=== PATIENT | female | born 1945 | race African-American/Black ===

== ENCOUNTER → 2016-12-24 | Outpatient (CLI) | payer MEDICARE, MEDICAID ==
[~2016-12-24] MED LIST: ALBUAER3 INH; FLUC150T PO; FLUT1INH3; FURO20TA PO; METO100T PO; POTA10CA PO; SIMV20TA PO
--- NOTE | 2017-01-01 08:53 | RSPPFT ---
DATE OF PROCEDURE: 12/24/16 COMMENTS: Spirometry demonstrates an FEV1 of 1.5 at 78% of predicted, FVC of 1.9 at 71%, FEF 25-75 at 61%. Post-bronchodilator study demonstrated improvements in the FEF 25-75. Lung volumes demonstrated a raised RV/TLC ratio suggesting hyperinflation and air trapping. Diffusion capacity is mildly reduced but normal when corrected for alveolar volume. Flow volume loops are suggestive of an obstructive pattern. IMPRESSION: 1. Mild obstructive disease. 2. Significant response to use of bronchodilator indicating some reversibility. 3. Hyperinflation with air trapping. 4. Mild reduction in diffusion capacity.
== END ==
LOC: HRSP 09:01
DX: J44.9 Chronic obstructive pulmonary disease, unspecified (principal); R06.00 Dyspnea, unspecified; R05 Cough; I10 Essential (primary) hypertension
CPT/HCPCS: 94060; 94726; 94729

== ENCOUNTER 2018-01-24 17:28 | Emergency (ER) | payer MEDICARE, MEDICAID ==
[~2018-01-24] VITALS: Ht 165.1 cm; Wt 50.0 kg
[~2018-01-24 17:28] MED LIST changes: -FLUC150T PO
[2018-01-24 17:39] VITALS: BP 94/59; PULSE 102; RESP 26; TEMP 97.2; O2SAT 97
--- NOTE | 2018-01-24 18:01 | RADRPT ---
EXAM DATE/TIME: 01/24/2018 17:56 [facility] COMPARISON: No previous studies available for comparison. INDICATIONS : Short of breath. MEDICAL HISTORY : Chronic obstructive pulmonary disease. SURGICAL HISTORY : CABG. ENCOUNTER: Initial ACUITY: >1 year PAIN SCORE: 0/10 LOCATION: Bilateral chest FINDINGS: The heart is mildly enlarged. There is no definite focal infiltrate. There is slight blunting of the left costophrenic angle which may reflect minimal effusion. Sternotomy wires and epicardial pacing le ads are present. Inferior vena caval filter is noted. CONCLUSION: Possible small left pleural effusion. Thanh Ventura MD on January 24, 2018 at 17:57 Board Certified Radiologist. This report was verified electronically.
[2018-01-24] MEDS ORDERED: ALBUAER3 INH (20:20)
[2018-01-24] MEDS ORDERED: UMEC1INH INH (20:20)
[2018-01-24 20:27] VITALS: BP 115/70; PULSE 92; RESP 18; O2SAT 98
[2018-01-24 20:56] LABS: AUTOMATED NEUTROPHIL # 3.7 TH/MM3 (1.8-7.7); BASOPHIL # 0.1 TH/MM3 (0-0.2); BASOPHIL % 1.1 % (0.0-2.0); EOSINOPHIL # 0.2 TH/MM3 (0-0.4); EOSINOPHIL % 2.7 % (0.0-4.0); HEMATOCRIT 45.5 % (35.0-46.0); HEMOGLOBIN 15.1 GM/DL (11.6-15.3); LYMPH % 24.6 % (9.0-44.0); LYMPHOCYTE # 1.6 TH/MM3 (1.0-4.8); MEAN CELL VOLUME 92.9 FL (80.0-100.0); MEAN CORPUSCULAR HEMOGLOBIN 30.8 PG (27.0-34.0); MEAN CORPUSCULAR HGB CONC 33.1 % (32.0-36.0); MEAN PLATELET VOLUME 9.2 FL (7.0-11.0); MONO % 15.4 % (0.0-8.0); NEUT % 56.2 % (16.0-70.0); PLATELET COUNT 207 TH/MM3 (150-450); RED BLOOD COUNT 4.89 MIL/MM3 (4.00-5.30); WHITE BLOOD COUNT 6.6 TH/MM3 (4.0-11.0)
--- NOTE | 2018-01-24 20:57 | PD ---
HPI Chief Complaint: Respiratory Symptoms Time Seen by Provider: 19:13 Travel History International Travel<30 days: No Contact w/Intl Traveler<30days: No Traveled to known affect area: No History of Present Illness HPI Patient is 72-year-old female coming in with her main complaint saying " you have to do something about this time I have a tongue" " it swells up and goes down and she has been here multiple times she says for the same. 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 She denies any airway compromise, no shortness of breath, no sensation of throat tightening. She is talking in full sentences no signs of airway compromise. 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 Patient has O2 saturation saturation is normal on the monitor. Blood pressure heart rate normal. She is in no distress whatsoever , she will have repeat CTs to reevaluate the size and progress of the tumors that were seen [address] she denies pain, she just says "she feels her tongue is very large" and it is driving her crazy it is difficult to eat. Patient is a history of hypertension and COPD she is on inhalers HFA's and she is on metoprolol for her high blood pressure and simvastatin for her cholesterol. No signs of resp distress on initial eval. 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) Hepatitis: No Hiatal Hernia: No Hypertension: Yes Immune Disorder: No Kidney Stones: No Medical other: Yes (HYPERCHOLESTEROL) Musculoskeletal: Yes (FIBROMYALGIA) Neurologic: No Psychiatric: No Reproductive: No Respiratory: Yes Immunizations Current: Yes Myocardial Infarction: No Seizures: No Sickle Cell Disease: No Sleep Apnea: No Thyroid Disease: Yes (DX HYPERTHYROIDISM) PNEUMOCCOCAL Vaccine (Year): 1 Menopausal: Yes Past Surgical History Abdominal Surgery: No AICD: No Appendectomy: No Arteriovenous Shunt: No Body Medical Devices: AVR Cardiac Surgery: Yes (AORTIC VALVE [id number] & 2008) Cholecystectomy: No Ear Surgery: No Endocrine Surgery: No Eye Surgery: No Genitourinary Surgery: No Gynecologic Surgery: No Joint Replacement: No Oral Surgery: No Pacemaker: No Thoracic Surgery: No Valve Replacement: Yes (aortic valve x 2) Other Surgery: Yes (AVR, SALINAS CYST) Social History Alcohol Use: Yes (occ wine) Tobacco Use: No Substance Use: No Allergies-Medications (Allergen,Severity, Reaction): Coded Allergies: nitroglycerin (Verified Allergy, Severe, PT DOESNT REMEMBER, 01/24/18) Uncoded Allergies: FRESH FROZEN PLASMA (Allergy, Severe, SWELLING,ITCHING, 10/31/15) Reported Meds & Prescriptions Reported Meds & Active Scripts Active Magic Mouthwash Adult Liq (Multi-Ingredient Mouthwash/Gargle) 120 Ml Susp 5 Ml SWISH-SWAL ACHS Each 5mL contains: Nystatin 200,000units, Diphenhydramine 4.25mg, Viscous Lidocaine 10mg, Lomeli syrup 0.8 mL Metoprolol Tartrate 100 Mg Tab 100 Mg PO BID Furosemide 20 Mg Tab 20 Mg PO DAILY Reported Incruse Ellipta Inh (Umeclidinium Flora Inh) 0.0625 Mg/Act Inh 62.5 Mcg INH DAILY Proair Hfa 8.5 GM Inh (Albuterol Sulfate) 90 Mcg/Act Aer 2 Puff INH Q6H PRN 108 mcg/actuation Arnuity Ellipta (Fluticasone Furoate (Inhalatio) 100 Mcg/Act Inh Simvastatin 20 Mg Tab 20 Mg PO HS Potassium Chloride ER (Potassium Chloride) 10 Meq Cap 10 Meq PO DAILY Review of Systems Except as stated in HPI: all other systems reviewed are Neg HENT: Positive: Other (Tongue swelling) Physical Exam Narrative GENERAL: No signs of respiratory distress SKIN: Warm and dry. HEAD: Atraumatic. Normocephalic. EYES: Pupils equal and round. No scleral icterus. No injection or drainage. ENT: No nasal bleeding or discharge. Mucous membranes pink and moist. Tongue is mildly large with dark patterns linear through out surface ... however lips and posterior pharynx and uvula are all within normal limits NECK: Trachea midline. No JVD. CARDIOVASCULAR: Regular rate and rhythm. RESPIRATORY: No accessory muscle use. Clear to auscultation. Breath sounds equal bilaterally. No RALES , no coarse BS GASTROINTESTINAL: Abdomen soft, non-tender, nondistended. Hepatic and splenic margins not palpable. MUSCULOSKELETAL: Extremities without clubbing, cyanosis, or edema. No obvious deformities. NEUROLOGICAL: Awake and alert. No obvious cranial nerve deficits. Motor grossly within normal limits. Five out of 5 muscle strength in the arms and legs. Normal speech. PSYCHIATRIC: Appropriate mood and affect; insight and judgment normal. Data Data Last Documented VS Vital Signs Date Time Temp Pulse Resp B/P (MAP) Pulse Ox O2 Delivery O2 Flow Rate FiO2 01/25/18 01:07 01/24/18 20:27 92 18 98 Room Air 01/24/18 17:39 97.2 Orders Orders Chest, Pa & Lat (01/24/18 ) Complete Blood Count With Diff (01/24/18 20:08) Westergren Sedimentation Rate (01/24/18 20:08) Comprehensive Metabolic Panel (01/24/18 20:08) Ct Soft Tiss Neck W Iv Cont (01/24/18 ) Iohexol 350 Inj (Omnipaque 350 Inj) (01/24/18 22:10) Diphenhydramine Liq (Benadryl Liq) (01/24/18 23:45) Lidocaine 2% Viscous (Xylocaine 2% Visco (01/24/18 23:45) Sucralfate Liq (Carafate Liq) (01/24/18 23:45) Nystatin Liq (Mycostatin Liq) (01/24/18 23:45) Ed Discharge Order (01/25/18 01:02) Labs Laboratory Tests Test 01/24/18 20:33 01/24/18 20:47 White Blood Count 6.6 TH/MM3 Red Blood Count 4.89 MIL/MM3 Hemoglobin 15.1 GM/DL Hematocrit 45.5 % Mean Corpuscular Volume 92.9 FL Mean Corpuscular Hemoglobin 30.8 PG Mean Corpuscular Hemoglobin Concent 33.1 % Red Cell Distribution Width 16.0 % Platelet Count 207 TH/MM3 Mean Platelet Volume 9.2 FL Neutrophils (%) (Auto) 56.2 % Lymphocytes (%) (Auto) 24.6 % Monocytes (%) (Auto) 15.4 % Eosinophils (%) (Auto) 2.7 % Basophils (%) (Auto) 1.1 % Neutrophils # (Auto) 3.7 TH/MM3 Lymphocytes # (Auto) 1.6 TH/MM3 Monocytes # (Auto) 1.0 TH/MM3 Eosinophils # (Auto) 0.2 TH/MM3 Basophils # (Auto) 0.1 TH/MM3 CBC Comment DIFF FINAL Differential Comment Blood Urea Nitrogen 19 MG/DL Creatinine 1.42 MG/DL Random Glucose 101 MG/DL Total Protein 7.3 GM/DL Albumin 3.4 GM/DL Calcium Level 9.6 MG/DL Alkaline Phosphatase 114 U/L Aspartate Amino Transf (AST/SGOT) 52 U/L Alanine Aminotransferase (ALT/SGPT) 94 U/L Total Bilirubin 1.3 MG/DL Sodium Level 138 MEQ/L Potassium Level 4.7 MEQ/L Chloride Level 106 MEQ/L Carbon Dioxide Level 23.0 MEQ/L Anion Gap 9 MEQ/L Estimat Glomerular Filtration Rate 44 ML/MIN Erythrocyte Sedimentation Rate 3 mm/hr [facility] Medical Decision Making Medical Screen Exam Complete: Yes Emergency Medical Condition: Yes Differential Diagnosis tongue swelling allergic vs chronic vs geographic tongue vs trnach mouth other Ludwigs angina Narrative Course CT read as negative for ear nor parotid gland mass pt given PO GI cocktail with benadryl and sulcrafate added to alleviate Sx and Rx for the same safe for discharge home Diagnosis Primary Impression: Geographic tongue Patient Instructions: General Instructions Departure Forms: Tests/Procedures Scripts Kbtuogrq-Pdfomlgmebxtoxl-Mnebyadfr Liq (Magic Mouthwash Adult Liq) 120 Ml Susp 5 ML SWISH-SWAL ACHS for Mouth sores, #120 ML 0 Refills Each 5mL contains: Nystatin 200,000units, Diphenhydramine 4.25mg, Viscous Lidocaine 10mg, Lomeli syrup 0.8 mL Prov: Jamel Padilla MD 01/25/18 Jamel Padilla MD Jan 24, 2018 20:57
[2018-01-24 21:16] LABS: ALT (GPT) 94 U/L (10-53)
[2018-01-24 21:19] LABS: ALKALINE PHOSPHATASE 114 U/L (45-117); TOTAL BILIRUBIN ADULT 1.3 MG/DL (0.2-1.0); TOTAL PROTEIN 7.3 GM/DL (6.4-8.2)
[2018-01-24 21:38] LABS: ALBUMIN 3.4 GM/DL (3.4-5.0); AST (GOT) 52 U/L (15-37); BLOOD UREA NITROGEN 19 MG/DL (7-18); CALCIUM 9.6 MG/DL (8.5-10.1); CHLORIDE 106 MEQ/L (98-107); CREATININE 1.42 MG/DL (0.50-1.00); GLOMERULAR FILTRATION RATE 44 ML/MIN (>89); GLUCOSE,RANDOM 101 MG/DL (74-106); SODIUM (NA) 138 MEQ/L (136-145)
[2018-01-24] MEDS ORDERED: IOHEXOL 350 MG/ML 10 ML VIAL (for RAD DIAG) IVCONTRAST ONE (22:10)
--- NOTE | 2018-01-24 23:12 | RADRPT ---
EXAM DATE/TIME: 01/24/2018 22:07 [facility] COMPARISON: No previous studies available for comparison. INDICATIONS : Tongue swelling and pain; patient has history of parotid mass. IV CONTRAST: 65 cc Omnipaque 350 (iohexol) IV RADIATION DOSE: 18.01 CTDIvol (mGy) MEDICAL HISTORY : Cardiovascular disease. Congestive heart failure. Gastroesophageal reflux disease.Hypertension SURGICAL HISTORY : Aortic valve replaced ENCOUNTER: Initial ACUITY: 1 day PAIN SCALE: 6/10 LOCATION: neck TECHNIQUE: Volumetric scanning of the neck was performed. Using automated exposure control and adjustment of th e mA and/or kV according to patient size, radiation dose was kept as low as reasonably achievable to obtain optimal diagnostic quality images. DICOM format image data is available electronically for r eview and comparison. FINDINGS: NASOPHARYNX: The nasopharyngeal airway has a normal configuration. No mucosal thickening or mass is seen. OROPHARYNX: The intrinsic muscles of the tongue are symmetric. The tonsillar pillars are intact. The prevertebr al soft tissues are not thickened. LARYNX: The supraglottic, glottic, and infraglottic structures are intact. PARAPHARYNGEAL: The parapharyngeal space is intact. SALIVARY GLANDS: The parotid and submandibular glands are intact. LYMPH NODES: No enlarged or necrotic-appearing nodes. THYROID: Homogeneous enhancement without evidence of nodule. BONES: Unremarkable. Scattered calcified plaque throughout the carotid arteries bilaterally. The right extracranial ICA is tortuous. CONCLUSION: 1. No acute abnormality. Uriah Landaverde Jr., MD on January 24, 2018 at 23:06 Board Certified Radiologist. This report was verified electronically.
[2018-01-24] MEDS ORDERED: NYSTATIN SUSP 500,000 U/5 ML CUP SWISH-SWAL ONE (23:45)
[2018-01-24] MEDS ORDERED: diphenhydrAMINE HCL ELIXIR 12.5 MG/5 ML CUP PO ONE (23:45)
[2018-01-24] MEDS ORDERED: LIDOCAINE VISCOUS 2% SOLN 15 ML UDC SWISH-SWAL ONE (23:45)
[2018-01-24] MEDS ORDERED: SUCRALFATE 1 GM/10 ML CUP PO ONE (23:45)
[2018-01-25] MEDS ORDERED: MAGICADU2 SWISH-SWAL (01:01)
== END 2018-01-25 01:53 | disposition home or self-care (01) ==
LOC: NEPE 17:28
DX: K14.1 Geographic tongue (principal); I11.0 Hypertensive heart disease with heart failure; I50.9 Heart failure, unspecified; E78.00 Pure hypercholesterolemia, unspecified; J44.9 Chronic obstructive pulmonary disease, unspecified
CPT/HCPCS: 70491; 71046; 80053; 85025; 85652; 99285; Q9967

== ENCOUNTER 2018-03-06 09:21 | Inpatient (IN) | payer MEDICARE, MEDICAID ==
[~2018-03-06] VITALS: Ht 167.6 cm; Wt 67.1 kg
[2018-03-06] VITALS (11 sets, daily range): BP systolic 98–128; BP diastolic 60–81; PULSE 63–112; RESP 15–20; TEMP 97.2–98.6; O2SAT 95–100
[~2018-03-06 09:21] MED LIST changes: +MAGICADU2 SWISH-SWAL; +UMEC1INH INH
[2018-03-06 10:23] LABS: AUTOMATED NEUTROPHIL # 1.8 TH/MM3 (1.8-7.7); EOSINOPHIL # 0.2 TH/MM3 (0-0.4); EOSINOPHIL % 4.5 % (0.0-4.0); HEMATOCRIT 46.4 % (35.0-46.0); HEMOGLOBIN 15.3 GM/DL (11.6-15.3); LYMPH % 40.2 % (9.0-44.0); LYMPHOCYTE # 1.8 TH/MM3 (1.0-4.8); MEAN CELL VOLUME 91.3 FL (80.0-100.0); MEAN CORPUSCULAR HEMOGLOBIN 30.1 PG (27.0-34.0); MEAN PLATELET VOLUME 9.7 FL (7.0-11.0); MONO % 13.1 % (0.0-8.0); MONOCYTE # 0.6 TH/MM3 (0-0.9); NEUT % 41.2 % (16.0-70.0); PLATELET COUNT 186 TH/MM3 (150-450); RED BLOOD COUNT 5.08 MIL/MM3 (4.00-5.30); RED CELL DISTRIBUTION WIDTH 15.5 % (11.6-17.2); WHITE BLOOD COUNT 4.4 TH/MM3 (4.0-11.0)
--- NOTE | 2018-03-06 10:24 | RADRPT ---
EXAM DATE: 03/06/2018 10:04 AM EDT AGE/SEX: 72 years / Female INDICATIONS: Chest pain. CLINICAL DATA: This is the patient's initial encounter. Patient reports that signs and symptoms have been present for 1 day and indicates a pain score of 1/10. MEDICAL/SURGICAL HISTORY: . COPD. Thyroid. . 2 valve replacements. Open heart surgery. [place] [facility] [place]. . FINDINGS: The heart is enlarged. The patient is post median sternotomy. The mediastinal contours are within nor mal limits. There are chronic interstitial changes throughout the pulmonary parenchyma. CONCLUSION: Cardiomegaly and postsurgical changes. The lungs are clear. Electronically signed by: Sudheer Cross MD 03/06/2018 10:22 AM EDT
[2018-03-06 10:31] LABS: INTERNATIONAL NORMALIZED RATIO 1.2 RATIO; PROTHROMBIN TIME - PATIENT 12.2 SEC (9.8-11.6)
[2018-03-06 10:39] LABS: BICARBONATE 24.6 MEQ/L (21.0-32.0); BLOOD UREA NITROGEN 18 MG/DL (7-18); CALCIUM 10.1 MG/DL (8.5-10.1); CHLORIDE 104 MEQ/L (98-107); GLOMERULAR FILTRATION RATE 54 ML/MIN (>89); GLUCOSE,RANDOM 107 MG/DL (74-106); SODIUM (NA) 142 MEQ/L (136-145)
[2018-03-06 10:43] LABS: TROPONIN I LESS THAN 0.02 NG/ML (0.02-0.05)
[2018-03-06] MEDS ORDERED: SODIUM CHLOR 0.9% 1000 ML INJ 1,000 ML IV SCH (10:45)
[2018-03-06] MEDS ORDERED: ASPIRIN 325 MG TAB PO ONE (11:30)
--- NOTE | 2018-03-06 11:33 | PD ---
HPI Chief Complaint: Chest Pain Time Seen by Provider: 11:11 Travel History International Travel<30 days: No Contact w/Intl Traveler<30days: No Traveled to known affect area: No History of Present Illness HPI This is a 72-year-old female with history of coronary artery disease, retention , fibromyalgia, who presents today with complaints of near syncopal episode today. Patient states that she was at home doing her laundry. She reports that she went to sit down and read the paper and when she went to stand up, she became severely dizzy. She reports that she nearly passed out. She reports that this persisted for several minutes. She reports that at that point, she called 911. She denies any chest pain. She does report that she has left shoulder and arm pain. She reports she gets this pain occasionally and states that she feels it is secondary to her fibromyalgia. She does report that she still feeling slightly "off". She has had no previous near syncopal episodes. 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 Patient also has recently diagnosed hypothyroidism. There is no reported diarrhea. Patient reports that she does urinate quite frequently but reports taking diuretics. 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) Hepatitis: No Hiatal Hernia: No Hypertension: Yes Immune Disorder: No Kidney Stones: No Musculoskeletal: Yes (FIBROMYALGIA) Neurologic: No Psychiatric: No Reproductive: No Respiratory: Yes Immunizations Current: Yes Myocardial Infarction: No Seizures: No Sickle Cell Disease: No Sleep Apnea: No Thyroid Disease: Yes (DX HYPERTHYROIDISM) Tetanus Vaccination: Never Vaccinated Influenza Vaccination: Yes PNEUMOCCOCAL Vaccine (Year): 1 ?: Unknown Menopausal: Yes Past Surgical History Abdominal Surgery: No AICD: No Appendectomy: No Arteriovenous Shunt: No Body Medical Devices: AVR Cardiac Surgery: Yes (AORTIC VALVE [id number] & 2008) Cholecystectomy: No Ear Surgery: No Endocrine Surgery: No Eye Surgery: No Genitourinary Surgery: No Gynecologic Surgery: No Joint Replacement: No Oral Surgery: No Pacemaker: No Thoracic Surgery: No Valve Replacement: Yes (aortic valve x 2) Other Surgery: Yes (AVR, SALINAS CYST) Social History Alcohol Use: Yes (occ wine) Tobacco Use: No Substance Use: No Allergies-Medications (Allergen,Severity, Reaction): Coded Allergies: nitroglycerin (Verified Allergy, Severe, PT DOESNT REMEMBER, 03/06/18) Uncoded Allergies: FRESH FROZEN PLASMA (Allergy, Severe, SWELLING,ITCHING, 10/31/15) Reported Meds & Prescriptions Reported Meds & Active Scripts Active Magic Mouthwash Adult Liq (Multi-Ingredient Mouthwash/Gargle) 120 Ml Susp 5 Ml SWISH-SWAL ACHS Each 5mL contains: Nystatin 200,000units, Diphenhydramine 4.25mg, Viscous Lidocaine 10mg, Lomeli syrup 0.8 mL Metoprolol Tartrate 100 Mg Tab 100 Mg PO BID Furosemide 20 Mg Tab 20 Mg PO DAILY Reported Incruse Ellipta Inh (Umeclidinium Oto Inh) 0.0625 Mg/Act Inh 62.5 Mcg INH DAILY Proair Hfa 8.5 GM Inh (Albuterol Sulfate) 90 Mcg/Act Aer 2 Puff INH Q6H PRN 108 mcg/actuation Arnuity Ellipta (Fluticasone Furoate (Inhalatio) 100 Mcg/Act Inh Simvastatin 20 Mg Tab 20 Mg PO HS Potassium Chloride ER (Potassium Chloride) 10 Meq Cap 10 Meq PO DAILY Review of Systems Except as stated in HPI: all other systems reviewed are Neg General / Constitutional: No: Fever, Chills HENT: Positive: Lightheadedness, No: Headaches, Vertigo, Neck Pain Cardiovascular: Positive: Palpitations, No: Chest Pain or Discomfort, Irregular Rhythm Respiratory: No: Cough, Wheezing Gastrointestinal: No: Nausea, Vomiting, Abdominal Pain Genitourinary: No: Dysuria, Incontinence Musculoskeletal: No: Weakness, Pain Neurologic: Positive: Syncope (Near syncope), No: Weakness, Dizziness, Headache Physical Exam Narrative GENERAL: Well-developed well well-nourished female in no acute respiratory distress. SKIN: Focused skin assessment warm/dry. HEAD: Atraumatic. Normocephalic. EYES: No injection or drainage. ENT: No nasal bleeding or discharge. Mucous membranes pink and moist. NECK: Trachea midline. No JVD. CARDIOVASCULAR: Irregular beat with a rate in the 70s. RESPIRATORY: No accessory muscle use. Clear to auscultation. Breath sounds equal bilaterally. GASTROINTESTINAL: Abdomen soft, non-tender, nondistended. Hepatic and splenic margins not palpable. MUSCULOSKELETAL: No obvious deformities. No clubbing. No cyanosis. No edema. NEUROLOGICAL: Awake and alert. No obvious cranial nerve deficits. Motor grossly within normal limits. Normal speech. PSYCHIATRIC: Appropriate mood and affect; insight and judgment normal. Data Data Last Documented VS Vital Signs Date Time Temp Pulse Resp B/P (MAP) Pulse Ox O2 Delivery O2 Flow Rate FiO2 03/06/18 10:14 79 15 96 Room Air 03/06/18 10:14 98.1 122/81 (95) Orders Orders Electrocardiogram (03/06/18 ) Electrocardiogram (03/06/18 09:44) Complete Blood Count With Diff (03/06/18 09:44) Basic Metabolic Panel (Bmp) (03/06/18 09:44) Ckmb (Isoenzyme) Profile (03/06/18 09:44) Troponin I (03/06/18 09:44) Chest, Single Ap (03/06/18 09:44) Iv Access Insert/Monitor (03/06/18 09:44) Ecg Monitoring (03/06/18 09:44) Oxygen Administration (03/06/18 09:44) Oximetry (03/06/18 09:44) Prothrombin Time / Inr (Pt) (03/06/18 09:44) Sodium Chlor 0.9% 1000 Ml Inj (Ns 1000 M (03/06/18 10:45) Aspirin (Aspirin) (03/06/18 11:30) Albuterol Hfa Inh (Proair Hfa Inh) (03/06/18 12:15) Metoprolol Tartrate (Lopressor) (03/06/18 21:00) Usaw-Wqyi-Nupo Liq (Magic Mouthwash Adul (03/06/18 17:00) Pravastatin (Pravachol) (03/06/18 21:00) Patient Own Medication (03/07/18 09:00) Thyroid Stimulating Hormone (03/06/18 12:09) B-Type Natriuretic Peptide (03/06/18 12:09) Labs Laboratory Tests Test 03/06/18 09:45 White Blood Count 4.4 TH/MM3 Red Blood Count 5.08 MIL/MM3 Hemoglobin 15.3 GM/DL Hematocrit 46.4 % Mean Corpuscular Volume 91.3 FL Mean Corpuscular Hemoglobin 30.1 PG Mean Corpuscular Hemoglobin Concent 33.0 % Red Cell Distribution Width 15.5 % Platelet Count 186 TH/MM3 Mean Platelet Volume 9.7 FL Neutrophils (%) (Auto) 41.2 % Lymphocytes (%) (Auto) 40.2 % Monocytes (%) (Auto) 13.1 % Eosinophils (%) (Auto) 4.5 % Basophils (%) (Auto) 1.0 % Neutrophils # (Auto) 1.8 TH/MM3 Lymphocytes # (Auto) 1.8 TH/MM3 Monocytes # (Auto) 0.6 TH/MM3 Eosinophils # (Auto) 0.2 TH/MM3 Basophils # (Auto) 0.0 TH/MM3 CBC Comment DIFF FINAL Differential Comment Prothrombin Time 12.2 SEC Prothromb Time International Ratio 1.2 RATIO Blood Urea Nitrogen 18 MG/DL Creatinine 1.20 MG/DL Random Glucose 107 MG/DL Calcium Level 10.1 MG/DL Sodium Level 142 MEQ/L Potassium Level 4.1 MEQ/L Chloride Level 104 MEQ/L Carbon Dioxide Level 24.6 MEQ/L Anion Gap 13 MEQ/L Estimat Glomerular Filtration Rate 54 ML/MIN Total Creatine Kinase 32 U/L Troponin I LESS THAN 0.02 NG/ML MDM Medical Decision Making Medical Screen Exam Complete: Yes Emergency Medical Condition: Yes Medical Record Reviewed: Yes Differential Diagnosis ACS versus musculoskeletal pain versus metabolic derangement versus TIA versus cardiac syncope Narrative Course 72-year-old female with history of coronary artery disease, presents here after having a near syncopal episode while at home. Patient also complained of left arm pain. Patient's EKG shows sinus arrhythmia with occasional PVC. First set of cardiac enzymes are within normal limits. Given the patient's presentation I am recommending we admit her for observation. She will need to be on telemetry floor. Case was discussed with senior resident, Dr. walters, who is in agreement. She will likely need a syncope workup including telemetry. Diagnosis Primary Impression: Near syncope Additional Impressions: History of aortic valve replacement Sinus arrhythmia with occasional PVCs HTN (hypertension) CKD (chronic kidney disease), stage III Admitting Information Admitting Physician Requests: Observation Bright Ruth MD March 06, 2018 11:33
--- NOTE | 2018-03-06 12:02 | HHI.HP ---
[facility] Service Family Medicine Primary Care Physician Unknown Admission Diagnosis Diagnoses: International Travel<30 Days: No Contact w/Intl Traveler<30days: No Known Affected Area: No History of Present Illness Patient is a 72-year-old AA female with a past medical history of coronary artery disease and fibromyalgia that presents to the [facility] with a chief complaint of syncope. Patient states that early this morning around 730 to 8 AM she was sitting in a chair watching TV. When she tried to get up, she felt dizzy so she sat back down and did not try to get up anymore because she knew that she will fall if she did. She states that the room did not spin all go dark but she felt lightheaded. She denies any seizure-like activity. The episode lasted for 3 minutes, and she had a bad feeling about it so she called 911. She denies having any syncopal episodes in the past. Patient does states that she has been having issues with her tongue such that anytime she eats food, she feels the food swells in her mouth and she develops a bad taste, forcing her to spit the food out. She states that she has no pain with swallowing. She has been drinking water normally. She has only been able to eat ensure and pudding since December. She has lost at least 12 pounds since December. Patient states that her PCP started her on levothyroxine within the last 30 days because of the issues that she is having with her tongue. She is also being treated with Magic mouthwash swish and swallow. Patient denies fever, chills, abdominal pain, nausea, vomiting, diarrhea, shortness of breath, or chest pain. She endorses constipation. Last time she had a bowel movement was 2 days ago and it was very hard such that she had to reach in and get it out. PCP is Dr. Rochelle Meadows. Political Advisor is Dr. Turner (Aster Coyne MD R2) History of Present Illness 72-year-old -[place] female presenting to the emergency department with a near syncopal episode. She states that early this morning at approximately 8 AM she was watching TV while sitting in a chair and when she went to get up she felt dizzy and had to sit back down because she felt that she was going to pass out. She states that she felt significantly lightheaded, however did not note spinning or vertigo type symptoms. The episode lasted for approximately 5 minutes and she has never had an episode like this before so she called for EVAC. She denies full loss of consciousness, she denies falling, she denies chest pain or palpitations, she denies fevers or chills, she denies recent illness. She does endorse a recent 20 pound weight loss because she has difficulty with eating. 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 It is particularly bad with solid foods such as breads and pastas, and she states that the only thing she has been able to eat for the last 3 months has been puddings, Jell-O, and protein supplementation like Ensure. She denies diarrhea, she denies abdominal pain, she denies throat pain, she denies dysuria, she denies early satiety. She does endorse constipation associated with this. (Jp Mayberry MD) Review of Systems Constitutional: COMPLAINS OF: Weight loss, Dizziness, DENIES: Fever, Chills Eyes: DENIES: Blurred vision, Eye pain, Vision loss Ears, nose, mouth, throat: COMPLAINS OF: Nasal discharge, Running Nose (for 3 weeks ) Respiratory: COMPLAINS OF: Shortness of breath (chronic copd), DENIES: Cough Cardiovascular: DENIES: Chest pain, Syncope, Lower Extremity Edema Gastrointestinal: COMPLAINS OF: Constipation, DENIES: Abdominal pain, Diarrhea (last BM was 2 days ago), Nausea, Vomiting Genitourinary: DENIES: Urinary frequency, Dysuria, Nocturia Musculoskeletal: COMPLAINS OF: Muscle aches (chronic fibromyalgia) Integumentary: DENIES: Pruritus, Rash Neurologic: DENIES: Headache, Paresthesias Psychiatric: COMPLAINS OF: Depression (since December, from not eating ), DENIES: Confusion, Suicidal Ideation, Homicidal Ideation (Aster Coyne MD R2) Past Family Social History Past Medical History Some of the patient's past medical and surgical history is mostly obtained from chart review. Patient states that she does not remember having a PE, IVC filter placement, or back surgery. Hx of GI bleed Hx of right leg hematoma Hx of PE Fibromyalgia Hypertension Hyperlipidemia Past Surgical History Aortic valve replacement in 1996, 2008- bioprosthetic IVC filter by chart review Kidney embolization in S/p laminectomy and diskectomy Breast biopsy Reported Medications Reported Meds & Active Scripts Active Magic Mouthwash Adult Liq (Multi-Ingredient Mouthwash/Gargle) 120 Ml Susp 5 Ml SWISH-SWAL ACHS Each 5mL contains: Nystatin 200,000units, Diphenhydramine 4.25mg, Viscous Lidocaine 10mg, Lomeli syrup 0.8 mL Metoprolol Tartrate 100 Mg Tab 100 Mg PO BID Furosemide 20 Mg Tab 20 Mg PO DAILY Reported Incruse Ellipta Inh (Umeclidinium [place] Inh) 0.0625 Mg/Act Inh 62.5 Mcg INH DAILY Proair Hfa 8.5 GM Inh (Albuterol Sulfate) 90 Mcg/Act Aer 2 Puff INH Q6H PRN 108 mcg/actuation Arnuity Ellipta (Fluticasone Furoate (Inhalatio) 100 Mcg/Act Inh Simvastatin 20 Mg Tab 20 Mg PO HS Potassium Chloride ER (Potassium Chloride) 10 Meq Cap 10 Meq PO DAILY (Aster Coyne MD R2) Allergies: Coded Allergies: nitroglycerin (Verified Allergy, Severe, PT DOESNT REMEMBER, 03/06/18) Uncoded Allergies: FRESH FROZEN PLASMA (Allergy, Severe, SWELLING,ITCHING, 10/31/15) Family History Mom - breast cancer Social History Smoking: quit smoking in 2009, smoked occasionally, socially Alcohol: wine, half a bottle each weekend day Drugs: denies (Aster Coyne MD R2) Physical Exam Vital Signs Vital Signs Date Time Temp Pulse Resp B/P (MAP) Pulse Ox O2 Delivery O2 Flow Rate FiO2 03/06/18 10:14 79 15 96 Room Air 03/06/18 10:14 98.1 89 15 122/81 (95) 96 Room Air 03/06/18 09:25 98.4 112 20 98/60 (73) 99 Physical Exam GENERAL: This is a slim, well-developed patient, pleasant and talkative SKIN: No rashes, ecchymoses or lesions. Cool and dry. HEAD: Atraumatic. Normocephalic. No temporal or scalp tenderness. EYES: Pupils equal round and reactive. Extraocular motions intact. No scleral icterus. No injection or drainage. ENT: Nose without bleeding, purulent drainage or septal hematoma. Geographic tongue, normal size. No signs of thrush. Throat without erythema, tonsillar hypertrophy or exudate. Uvula midline. Airway patent. NECK: Trachea midline. No JVD or lymphadenopathy. Supple, nontender, no meningeal signs. CARDIOVASCULAR: Regular rate and irregular rhythm without murmurs, gallops, or rubs. RESPIRATORY: Clear to auscultation. Breath sounds equal bilaterally. No wheezes , rales, or rhonchi. GASTROINTESTINAL: Abdomen soft, non-tender, nondistended. No hepato-splenomegaly , or palpable masses. No guarding. MUSCULOSKELETAL: Extremities without clubbing, cyanosis, or edema. No joint tenderness, effusion, or edema noted. No calf tenderness. NEUROLOGICAL: Awake and alert. Cranial nerves II through XII intact. Normal finger to nose test. Motor and sensory grossly within normal limits. Five out of 5 muscle strength in all muscle groups. Normal speech. Laboratory Laboratory Tests Test 03/06/18 09:45 White Blood Count 4.4 Red Blood Count 5.08 Hemoglobin 15.3 Hematocrit 46.4 Mean Corpuscular Volume 91.3 Mean Corpuscular Hemoglobin 30.1 Mean Corpuscular Hemoglobin Concent 33.0 Red Cell Distribution Width 15.5 Platelet Count 186 Mean Platelet Volume 9.7 Neutrophils (%) (Auto) 41.2 Lymphocytes (%) (Auto) 40.2 Monocytes (%) (Auto) 13.1 Eosinophils (%) (Auto) 4.5 Basophils (%) (Auto) 1.0 Neutrophils # (Auto) 1.8 Lymphocytes # (Auto) 1.8 Monocytes # (Auto) 0.6 Eosinophils # (Auto) 0.2 Basophils # (Auto) 0.0 CBC Comment DIFF FINAL Differential Comment Prothrombin Time 12.2 Prothromb Time International Ratio 1.2 Blood Urea Nitrogen 18 Creatinine 1.20 Random Glucose 107 Calcium Level 10.1 Sodium Level 142 Potassium Level 4.1 Chloride Level 104 Carbon Dioxide Level 24.6 Anion Gap 13 Estimat Glomerular Filtration Rate 54 Total Creatine Kinase 32 Troponin I LESS THAN 0.02 (Eko,Aster TAVERAS R2) Physical Exam General: -Beninese female appears elderly, lying in bed in no obvious distress Skin: No rashes or obvious lesions HEENT: Atraumatic, normocephalic, PERRLA, tongue is beefy red with weight, plaque type lesions that cannot be removed. No obvious signs of thrush. Throat without erythema, hypertrophy of the tonsils, or exudates. CV: Regular rate and rhythm with occasional PVCs, no murmurs or gallops. Respiratory: Clear to auscultation bilaterally. GI: Soft, nontender, nondistended without hepatosplenomegaly (Jp Mayberry MD) Result Diagram: 03/06/18 0945 03/06/18 0945 Imaging Last Impressions Chest X-Ray 03/06/18 0944 Signed Impressions: CONCLUSION: Cardiomegaly and postsurgical changes. The lungs are clear. Carotid Artery Ultrasound 03/06/18 0000 Signed Impressions: CONCLUSION: There are 50-69% stenoses of both internal carotid arteries. Course In the ED, patient was found to be tachycardic on admission. EKG was performed which showed sinus arrhythmia with frequent PVCs. Troponin 1 was less than 0.02. Decision was made to admit her for syncope workup including telemetry. (Aster Coyne MD R2) Caprini VTE Risk Assessment Caprini VTE Risk Assessment: Mod/High Risk (score >= 2) Caprini Risk Assessment Model Point Value = 1 Point Value = 2 Point Value = 3 Point Value = 5 Age 41-60 Minor surgery BMI > 25 kg/m2 Swollen legs Varicose veins or History of unexplained or recurrent spontaneous Oral contraceptives or hormone replacement Sepsis (< 1 month) Serious lung disease, including pneumonia (< 1 month) Abnormal pulmonary function Acute myocardial infarction Congestive heart failure (< 1 month) History of inflammatory bowel disease Medical patient at bed rest Age 61-74 Arthroscopic surgery Major open surgery (> 45 min) Laparoscopic surgery (> 45 min) Malignancy Confined to bed (> 72 hours) Immobilizing plaster cast Central venous access Age >= 75 History of VTE Family history of VTE Factor V Leiden Prothrombin [id number] Lupus anticoagulant Anticardiolipin antibodies Elevated serum homocysteine Heparin-induced thrombocytopenia Other congenital or acquired thrombophilia Stroke (< 1 month) Elective arthroplasty Hip, pelvis, or leg fracture Acute spinal cord injury (< 1 month) Prophylaxis Regimen Total Risk Factor Score Risk Level Prophylaxis Regimen 0-1 Low Early ambulation 2 Moderate Order ONE of the following: *Sequential Compression Device (SCD) *Heparin 5000 units SQ BID 3-4 Higher Order ONE of the following medications: *Heparin 5000 units SQ TID *Enoxaparin/Lovenox 40 mg SQ daily (WT < 150 kg, CrCl > 30 mL/min) *Enoxaparin/Lovenox 30 mg SQ daily (WT < 150 kg, CrCl > 10-29 mL/min) *Enoxaparin/Lovenox 30 mg SQ BID (WT < 150 kg, CrCl > 30 mL/min) AND/OR *Sequential Compression Device (SCD) 5 or more Highest Order ONE of the following medications: *Heparin 5000 units SQ TID (Preferred with Epidurals) *Enoxaparin/Lovenox 40 mg SQ daily (WT < 150 kg, CrCl > 30 mL/min) *Enoxaparin/Lovenox 30 mg SQ daily (WT < 150 kg, CrCl > 10-29 mL/min) *Enoxaparin/Lovenox 30 mg SQ BID (WT < 150 kg, CrCl > 30 mL/min) AND *Sequential Compression Device (SCD) (Aster Coyne MD R2) Assessment and Plan Assessment and Plan Patient is a 72 year old female that presents with near syncope. She will be admitted on observation for syncope workup. Code Status Full code. Patient's son Nate Ramos is her healthcare surrogate Discussed Condition With ED physician (Aster Coyne MD R2) Attending Attestation Patient examined independently and case discussed with resident physicians I have read the above note and agree with the assessment/plan as discussed with me I was involved in all medical decision making for this patient Jp Mayberry MD (Jp Mayberry MD) Problem List: (1) Near syncope ICD Codes: R55 - Syncope and collapse Status: Acute Plan: Vitals on admission: Afebrile at 98.4, pulse 112, RR 20, BP 98/60, 99% saturation on room air Differential diagnosis includes cardiogenic, hypovolemia, and vasovagal EKG on admission shows a regular sinus rhythm with multiple supraventricular premature complexes, no signs of acute ACS on my interpretation Troponin less than 0.02 on admission Chest x-ray shows cardiomegaly with no venous congestion PLAN -Trend EKG and troponin 2 -BNP pending -Orthostatic vital signs with pulse ox pending -2D echo pending -Carotid ultrasound pending -Cardiology consult - Dr. Turner - appreciate recommendations -Continuous cardiac telemetry -Vitals every 4 hours -Out of bed with assistance -Fall precautions (2) CAD (coronary artery disease) ICD Codes: I25.10 - Atherosclerotic heart disease of [place] coronary artery without angina pectoris Plan: -History of aortic valve replacement 2 -Continue metoprolol 100 mg p.o. twice daily (3) HTN (hypertension) ICD Codes: I10 - HTN (hypertension) Status: Acute Plan: -Initially normotensive on admission but stabilized -Will monitor while admitted -On metoprolol 100 mg p.o. twice daily (4) COPD (chronic obstructive pulmonary disease) ICD Codes: J44.9 - COPD (chronic obstructive pulmonary disease) Status: Acute Plan: -Stable, no shortness of breath on room air -Continue Incruse Ellipta inhaler -Continue Albuterol 8.5gm inhaler (5) History of DVT (deep vein thrombosis) ICD Codes: Z86.718 - Personal history of other venous thrombosis and embolism Plan: Heparin 5000 units subcu every 8 for DVT prophylaxis Bilateral SCDs (6) Constipation ICD Codes: K59.00 - Constipation, unspecified Plan: Patient reports chronic problem with constipation Will start constipation medication protocol Monitor I's and Os (7) CKD (chronic kidney disease) ICD Codes: N18.9 - Chronic kidney disease, unspecified Plan: 1.42 on 01/24/18 0.74 on 01/06/13 Creatinine 1.20 on admission CKD stage III per chart review Monitor daily Avoid nephrotoxic agents (8) Fibromyalgia ICD Codes: M79.7 - Fibromyalgia Status: Acute Plan: Stable, not on any medications at home -Will treat as needed (9) FEN Plan: Fluids: Oral fluids Electrolytes: Will monitor and replace as needed Nutrition: Heart healthy diet, dietary consult to assist with management of poor p.o. intake (Aster Coyne MD R2) Aster Coyne MD R2 March 06, 2018 12:02 Jp Mayberry MD March 06, 2018 20:54
[2018-03-06] MEDS ORDERED: ALBUTEROL SULFATE 90 MCG/ACT HFA 8 GM INHALER INH PRN (12:15)
[2018-03-06] MEDS ORDERED: BISACODYL 10 MG SUPP RECTAL PRN (12:30)
[2018-03-06] MEDS ORDERED: MAGNESIUM HYDROXIDE SUSP 30 ML CUP PO PRN (12:30)
[2018-03-06] MEDS ORDERED: LACTULOSE SYRUP 20 GM/30 ML CUP PO PRN (12:30)
[2018-03-06] MEDS ORDERED: SENNOSIDES 8.6 MG TAB PO PRN (12:30)
[2018-03-06] MEDS ORDERED: SODIUM CHLORIDE 0.9% FLUSH 10 ML FLUSH IV FLUSH PRN (13:00)
[2018-03-06] MEDS: DOCUSATE SODIUM 50 MG/SENNA 8.6 MG TAB PO SCH ×2 (13:41→23:04)
[2018-03-06] MEDS ORDERED: NALOXONE HCL 0.4 MG/ML AMP IV PUSH PRN (14:30)
[2018-03-06] MEDS ORDERED: ONDANSETRON ODT 4 MG TAB PO PRN (14:30)
[2018-03-06] MEDS ORDERED: ACETAMINOPHEN 325 MG TAB PO PRN ×3 (14:30→23:45)
[2018-03-06] MEDS: HEPARIN SODIUM - SQ 10,000 UNITS/ML VIAL SQ SCH ×2 (14:45→23:04)
--- NOTE | 2018-03-06 14:54 | EKG ---
Date Performed: 03/06/2018 Time Performed: 09:34:22 PTAGE: 72 years EKG: Sinus rhythm WITH OCCASIONAL VENTRICULAR PREMATURE COMPLEXES WITH FREQUENT SUPRAVENTRICULAR PREMATURE COMPLEXES L EFT ATRIAL ENLARGEMENT INCOMPLETE RIGHT BUNDLE BRANCH BLOCK RIGHT VENTRICULAR HYPERTROPHY AND ST-T CH SALVATORE Consider anterolateral ischemia ABNORMAL ECG PREVIOUS TRACING : 03/06/2018 09.33 DOCTOR: Edwardo Boyce Interpretating Date/Time 03/06/2018 14:51:23
--- NOTE | 2018-03-06 15:05 | RADRPT ---
EXAM DATE: 03/06/2018 3:02 PM EDT AGE/SEX: 72 years / Female INDICATIONS: Syncope. CLINICAL DATA: This is the patient's initial encounter. Patient reports that signs and symptoms have been present for 1 day and indicates a pain score of 0/10. MEDICAL/SURGICAL HISTORY: Hyperthyroidism. Congestive heart failure. Hypercholesterolemia. C oronary artery disease. HTN. Chest pain. COPD. Bronchitis. Dyspnea. GERD. Blood clot on right kidney. Fibromyalgia. Arthritis. DVT. Pulmonary embolism. . Aortic valve replacement x2. Cardiac cath. Righ t foot surgery. Islas cyst removal. COMPARISON: No prior [place] exams available for comparison. No external comparison. VELOCITY PARAMETERS: ICA/CCA Ratio: Right 1.9 , Left 2.2 ICA: Right 70 cm/sec, Left 85 cm/sec CCA: Right 37 cm/sec, Left 38 cm/sec ECA: Right 44 cm/sec, Left 34 cm/sec Vertebral: Right 44 cm/sec antegrade, Left 41 cm/sec antegrade FINDINGS: Right Carotid: No significant stenosis is visualized. Mild plaque. The waveforms are within normal limits. Left Carotid: No significant stenosis is visualized. Mild plaque. The waveforms are within normal l imits. Other: None. CONCLUSION: There are 50-69% stenoses of both internal carotid arteries. Electronically signed by: Clarence Reyes MD 03/06/2018 3:04 PM EDT
[2018-03-06] MEDS ORDERED: NYSTAT/DIPHENHY/LIDO MOUTHWASH (Adult) 120ML SWISH-SWAL SCH (17:00)
[2018-03-06 17:52] LABS: MAGNESIUM 1.7 MG/DL (1.5-2.5); PHOSPHORUS 3.5 MG/DL (2.5-4.9)
[2018-03-06] MEDS: NYSTAT/DIPHENHY/LIDO MOUTHWASH (Adult) 120ML SWISH-SWAL SCH ×2 (20:03→23:05)
[2018-03-06] MEDS ORDERED: TEMAZEPAM 15 MG CAP PO PRN (21:00)
[2018-03-06] MEDS: SODIUM CHLORIDE 0.9% FLUSH 10 ML FLUSH IV FLUSH SCH (23:04)
[2018-03-06] MEDS: METOPROLOL TARTRATE 100 MG TAB PO SCH (23:04)
[2018-03-06] MEDS: PRAVASTATIN SOD 40 MG TAB PO SCH (23:04)
[2018-03-07] VITALS (13 sets, daily range): BP systolic 95–106; BP diastolic 54–75; PULSE 64–105; RESP 16–18; TEMP 97.4–98.4; O2SAT 94–98
[2018-03-07 04:57] LABS: AUTOMATED NEUTROPHIL # 1.9 TH/MM3 (1.8-7.7); BASOPHIL % 0.9 % (0.0-2.0); EOSINOPHIL # 0.2 TH/MM3 (0-0.4); EOSINOPHIL % 3.8 % (0.0-4.0); HEMATOCRIT 45.4 % (35.0-46.0); HEMOGLOBIN 14.8 GM/DL (11.6-15.3); LYMPH % 36.1 % (9.0-44.0); LYMPHOCYTE # 1.4 TH/MM3 (1.0-4.8); MEAN CELL VOLUME 92.2 FL (80.0-100.0); MEAN CORPUSCULAR HEMOGLOBIN 30.1 PG (27.0-34.0); MEAN CORPUSCULAR HGB CONC 32.6 % (32.0-36.0); MEAN PLATELET VOLUME 9.6 FL (7.0-11.0); MONO % 12.6 % (0.0-8.0); MONOCYTE # 0.5 TH/MM3 (0-0.9); NEUT % 46.6 % (16.0-70.0); PLATELET COUNT 170 TH/MM3 (150-450); RED BLOOD COUNT 4.93 MIL/MM3 (4.00-5.30); RED CELL DISTRIBUTION WIDTH 15.7 % (11.6-17.2)
[2018-03-07 05:16] LABS: ALBUMIN 3.4 GM/DL (3.4-5.0); AST (GOT) 31 U/L (15-37); BICARBONATE 25.5 MEQ/L (21.0-32.0); BLOOD UREA NITROGEN 16 MG/DL (7-18); CALCIUM 9.7 MG/DL (8.5-10.1); CHLORIDE 105 MEQ/L (98-107); CREATININE 1.13 MG/DL (0.50-1.00); GLOMERULAR FILTRATION RATE 57 ML/MIN (>89); GLUCOSE,RANDOM 90 MG/DL (74-106); SODIUM (NA) 141 MEQ/L (136-145)
[2018-03-07 05:24] LABS: ALKALINE PHOSPHATASE 99 U/L (45-117); ALT (GPT) 22 U/L (10-53); TOTAL BILIRUBIN ADULT 1.2 MG/DL (0.2-1.0); TROPONIN I 0.02 NG/ML (0.02-0.05)
[2018-03-07] MEDS: ACETAMINOPHEN/HYDROcodone 325 MG/5 MG TAB PO PRN ×2 (05:33→21:34)
[2018-03-07] MEDS: HEPARIN SODIUM - SQ 10,000 UNITS/ML VIAL SQ SCH (05:33)
[2018-03-07] MEDS ORDERED: ELLIPTA INH SCH (09:00)
[2018-03-07] MEDS: METOPROLOL TARTRATE 100 MG TAB PO SCH (09:00)
[2018-03-07] MEDS: SODIUM CHLORIDE 0.9% FLUSH 10 ML FLUSH IV FLUSH SCH ×2 (09:01→21:00)
[2018-03-07] MEDS: DOCUSATE SODIUM 50 MG/SENNA 8.6 MG TAB PO SCH ×2 (09:01→21:33)
[2018-03-07] MEDS: NYSTAT/DIPHENHY/LIDO MOUTHWASH (Adult) 120ML SWISH-SWAL SCH ×4 (09:01→21:33)
[2018-03-07] MEDS: FUROSEMIDE 20 MG TAB PO SCH (09:01)
[2018-03-07] MEDS ORDERED: LEVO25TA4 PO (09:15)
--- NOTE | 2018-03-07 10:42 | HHI.FPPN ---
Subjective Remarks No acute issues overnight. Vitals are stable, patient remains afebrile. She denies any light-headedness, dizziness, chest pain, shortness of breath, fever, chills, nausea or vomiting. She is tolerating PO. (Charmaine Polanco MD R3) Objective Vitals Vital Signs Date Time Temp Pulse Resp B/P (MAP) Pulse Ox O2 Delivery O2 Flow Rate FiO2 03/07/18 08:00 97.8 80 18 99/75 (83) 96 03/07/18 04:10 97.6 84 16 95/68 (77) 98 103/60 (74) 103/65 (78) 03/07/18 04:00 83 03/07/18 00:18 96 Nasal Cannula 2.00 03/07/18 00:00 79 03/06/18 23:40 97.4 92 16 116/60 (78) 98 03/06/18 20:45 96 Nasal Cannula 2.00 03/06/18 20:09 97.2 63 16 114/60 (78) 95 03/06/18 20:00 90 03/06/18 18:15 98.0 70 18 106/71 (83) 97 03/06/18 18:00 Nasal Cannula 2.00 03/06/18 16:40 97.9 79 16 128/65 (86) 99 03/06/18 16:25 97.9 98 15 128/65 (86) 100 Nasal Cannula 2.00 03/06/18 16:21 100 Nasal Cannula 2.00 03/06/18 11:23 97.8 91 15 115/77 (90) 100 Nasal Cannula 2.00 I/O 03/06/18 03/06/18 03/06/18 03/07/18 03/07/18 03/07/18 07:00 15:00 23:00 07:00 15:00 23:00 Intake Total 0 ml Balance 0 ml Intake Oral 0 ml # Voids 3 # Bowel Movements 1 (Charmaine Polanco MD R3) Result Diagram: 03/07/18 0420 03/07/18 0420 Imaging Last Impressions Chest X-Ray 03/06/18 0944 Signed Impressions: CONCLUSION: Cardiomegaly and postsurgical changes. The lungs are clear. Carotid Artery Ultrasound 03/06/18 0000 Signed Impressions: CONCLUSION: There are 50-69% stenoses of both internal carotid arteries. Objective Remarks GENERAL: female patient in no acute distress. SKIN: Warm and dry. HEAD: Normocephalic. EYES: No scleral icterus. No injection or drainage. NECK: Supple, trachea midline. No JVD or lymphadenopathy. CARDIOVASCULAR: Regular rate and rhythm with occasional PVC's, no murmurs, gallops, or rubs. RESPIRATORY: Breath sounds equal bilaterally. No accessory muscle use. GASTROINTESTINAL: Abdomen soft, non-tender, nondistended. MUSCULOSKELETAL: No cyanosis, or edema. BACK: Nontender without obvious deformity. (Charmaine Polanco MD R3) A/P Assessment and Plan Patient is a 72 year old female admitted for near syncope. Discharge Planning Anticipate discharge home today or tomorrow. (Charmaine Polanco MD R3) Attending Attestation Pt. examined independently and case discussed with resident physicians I have read the above note and agree with the assessment/plan as discussed with me I was involved in all medical decision making for this patient Jp Mayberry MD (Jp Mayberry MD) Problem List: (1) Near syncope ICD Codes: R55 - Syncope and collapse Status: Acute Plan: Vitals stable EKG on admission shows a regular sinus rhythm with multiple supraventricular premature complexes, no signs of acute ACS on my interpretation Troponin less than 0.02 on admission Chest x-ray shows cardiomegaly with no venous congestion -EKG and troponins stable overnight -BNP elevated at 2365 -Orthostatic BP wnl -Carotid ultrasound shows 50-69% stenosis of both internal carotid arteries -2D echo pending -Cardiology consult - Dr. Turner - appreciate recommendations -Continuous cardiac telemetry -Vitals every 4 hours -Out of bed with assistance -Fall precautions (2) CAD (coronary artery disease) ICD Codes: I25.10 - Atherosclerotic heart disease of [place] coronary artery without angina pectoris Status: Chronic Plan: -History of aortic valve replacement 2 -Continue metoprolol 100 mg p.o. twice daily (3) HTN (hypertension) ICD Codes: I10 - HTN (hypertension) Status: Chronic Plan: Stable -On metoprolol 100 mg p.o. twice daily (4) COPD (chronic obstructive pulmonary disease) ICD Codes: J44.9 - COPD (chronic obstructive pulmonary disease) Status: Chronic Plan: -Stable, no shortness of breath on room air -Continue Ellipta inhaler -Continue Albuterol 8.5gm inhaler (5) History of DVT (deep vein thrombosis) ICD Codes: Z86.718 - Personal history of other venous thrombosis and embolism Status: Chronic Plan: Heparin 5000 units subcu every 8 for DVT prophylaxis Bilateral SCDs (6) Constipation ICD Codes: K59.00 - Constipation, unspecified Status: Chronic Plan: Patient reports chronic problem with constipation s/p BM this AM constipation medication protocol Monitor I's and Os (7) CKD (chronic kidney disease) ICD Codes: N18.9 - Chronic kidney disease, unspecified Status: Chronic Plan: 1.42 on 01/24/18 0.74 on 01/06/13 Creatinine 1.20 on admission CKD stage III per chart review Avoid nephrotoxic agents (8) Fibromyalgia ICD Codes: M79.7 - Fibromyalgia Status: Chronic Plan: Stable, not on any medications at home -Will treat as needed (9) FEN Status: Acute Plan: Fluids: Oral fluids Electrolytes: Will monitor and replace as needed Nutrition: Heart healthy diet, mechanical soft solids, thin liquids, ensure with all meals (Charmaine Polanco MD R3) Problem Qualifiers (1) HTN (hypertension): Qualified Codes: I10 - Essential (primary) hypertension (2) CKD (chronic kidney disease): Qualified Codes: N18.3 - Chronic kidney disease, stage 3 (moderate) Charmaine Polanco MD R3 Mar 07, 2018 10:42 Jp Mayberry MD Mar 07, 2018 15:17
--- NOTE | 2018-03-07 10:53 | PD.CONS ---
HPI Service Cardiology Consult Requested By Reason for Consult Near syncope Primary Care Physician Unknown History of Present Illness 72 year old female know to our practice with a history of aortic valve replacement with bovine valve in 2005 and 2008, carotid artery disease, HTN, pulmonary embolus, hyperlipidemia and fibromyalgia. She reports she was sitting at home watching TV and all of the sudden she became dizzy. She denies passing out or loosing consciousness. She reports that she called 911 because she felt like she would pass out if she were to try to stand up. Today she denies any further episodes of dizziness. She reports that she continues to have left arm pain that radiates to her shoulders, pain has been present for over two years, she relates it to her fibromyalgia. SHe reports having chronic SOB, uses inhaler at home. On exam no signs of fluid overload noted. Troponins negative. Telemetry reveals new onset Afib. She is a poor candidate for coumadin, due to hx of non-compliance Discussed starting on eliquis off label. . (Marissa Boone) Review of Systems Consitutional: DENIES: Fatigue, Fever, Chills, Weight gain, Weight loss Eyes: DENIES: Amaurosis Fugax, Change in vision HEENT: COMPLAINS OF: Lightheadedness Respiratory: COMPLAINS OF: Shortness of breath Cardiovascular: COMPLAINS OF: Chest pain Gastrointestinal: DENIES: Nausea, Vomiting, Change in bowel habits, Reflux, Bloody stools, Melena Genitourinary: DENIES: Urinary incontinence, Difficulty voiding Integumentary: DENIES: Rash Neurologic: DENIES: Tingling or numbness, Memory problems, Poor Balance, Stroke symptoms Musculoskeletal: COMPLAINS OF: Muscle pain Psychiatric: DENIES: Anxiety, Depression, Sleep disturbances Hematologic: DENIES: Bruising tendencies, Bleeding tendencies Endocrine: COMPLAINS OF: Weight loss (Marissa Boone) Past Family Social History Allergies: Coded Allergies: nitroglycerin (Verified Allergy, Severe, PT DOESNT REMEMBER, 03/06/18) Uncoded Allergies: FRESH FROZEN PLASMA (Allergy, Severe, SWELLING,ITCHING, 10/31/15) Past Medical History Aortic valve replacement with bovine valve 2005 and 2008 Mild carotid stenosis Pulmonary Embolus 2008-not a good candidate for coumadin HTN Hyperlipidemia COPD Fibromyalgia Past Surgical History Cardiac cath 2008 Aortic valve replacement 2008 Cardiac cath 2003 Cardiac cath 1993 Reported Medications Reported Meds & Active Scripts Active Magic Mouthwash Adult Liq (Multi-Ingredient Mouthwash/Gargle) 120 Ml Susp 5 Ml SWISH-SWAL ACHS Each 5mL contains: Nystatin 200,000units, Diphenhydramine 4.25mg, Viscous Lidocaine 10mg, Lomeli syrup 0.8 mL Metoprolol Tartrate 100 Mg Tab 100 Mg PO BID Furosemide 20 Mg Tab 20 Mg PO DAILY Reported Levothyroxine (Levothyroxine Sodium) 25 Mcg Tab 25 Mcg PO DAILY@0600 Incruse Ellipta Inh (Umeclidinium [place] Inh) 0.0625 Mg/Act Inh 62.5 Mcg INH DAILY Proair Hfa 8.5 GM Inh (Albuterol Sulfate) 90 Mcg/Act Aer 2 Puff INH Q6H PRN 108 mcg/actuation Arnuity Ellipta (Fluticasone Furoate (Inhalatio) 100 Mcg/Act Inh Simvastatin 20 Mg Tab 20 Mg PO HS Potassium Chloride ER (Potassium Chloride) 10 Meq Cap 10 Meq PO DAILY Active Ordered Medications Current Medications Medications (Trade) Dose Ordered Sig/Sy Route Start Time Stop Time Status Last Admin (Proair Hfa Inh) 2 puff Q6H PRN INH 03/06/18 12:15 (Lopressor) 100 mg BID PO 03/06/18 21:00 03/06/18 23:04 (Pravachol) 40 mg HS PO 03/06/18 21:00 03/06/18 23:04 Patient Own Medication PT OWN MED: JENNIFER... DAILY INH 03/07/18 09:00 Future Hold (Sasha-Colace) 1 tab BID PO 03/06/18 12:30 03/07/18 09:01 (Milk Of Magnesia Liq) 30 ml Q12H PRN PO 03/06/18 12:30 (Senokot) 17.2 mg Q12H PRN PO 03/06/18 12:30 (Dulcolax Supp) 10 mg DAILY PRN RECTAL 03/06/18 12:30 (Lactulose Liq) 30 ml DAILY PRN PO 03/06/18 12:30 (NS Flush) 2 ml UNSCH PRN IV FLUSH 03/06/18 13:00 (NS Flush) 2 ml BID IV FLUSH 03/06/18 21:00 03/07/18 09:01 (Magic Mouthwash Adult Liq) 10 ml QID SWISH-SWAL 03/06/18 18:00 03/07/18 09:01 (Restoril) 15 mg HS PRN PO 03/06/18 21:00 (Narcan Inj) 0.4 mg UNSCH PRN IV PUSH 03/06/18 14:30 (Zofran Odt) 4 mg Q6H PRN PO 03/06/18 14:30 (Lasix) 20 mg DAILY PO 03/07/18 09:00 03/07/18 09:01 (Tylenol) 650 mg Q4H PRN PO 03/06/18 23:45 ([place] 5-325 Mg) 1 tab Q6H PRN PO 03/06/18 23:45 03/07/18 05:33 (Tylenol) 650 mg Q6H PRN PO 03/06/18 23:45 (Eliquis) 5 mg BID PO 03/07/18 21:00 Social History Nonsmoker Social drinker (Shadeed,Marissa Sana SELLERSP) Physical Exam Vital Signs Vital Signs Date Time Temp Pulse Resp B/P (MAP) Pulse Ox O2 Delivery O2 Flow Rate FiO2 03/07/18 08:00 97.8 80 18 99/75 (83) 96 03/07/18 04:10 97.6 84 16 95/68 (77) 98 103/60 (74) 103/65 (78) 03/07/18 04:00 83 03/07/18 00:18 96 Nasal Cannula 2.00 03/07/18 00:00 79 03/06/18 23:40 97.4 92 16 116/60 (78) 98 03/06/18 20:45 96 Nasal Cannula 2.00 03/06/18 20:09 97.2 63 16 114/60 (78) 95 03/06/18 20:00 90 03/06/18 18:15 98.0 70 18 106/71 (83) 97 03/06/18 18:00 Nasal Cannula 2.00 03/06/18 16:40 97.9 79 16 128/65 (86) 99 03/06/18 16:25 97.9 98 15 128/65 (86) 100 Nasal Cannula 2.00 03/06/18 16:21 100 Nasal Cannula 2.00 03/06/18 11:23 97.8 91 15 115/77 (90) 100 Nasal Cannula 2.00 Physical Exam GENERAL: elderly femal SKIN: Warm and dry. HEAD: Atraumatic. Normocephalic. EYES: No injection or drainage. ENT: No nasal bleeding or discharge. Mucous membranes pink and moist. NECK: Trachea midline. No JVD. CARDIOVASCULAR: irregularly, irregular RESPIRATORY: No accessory muscle use. Clear to auscultation. Breath sounds equal bilaterally. GASTROINTESTINAL: Abdomen soft, non-tender, nondistended. Hepatic and splenic margins not palpable. MUSCULOSKELETAL: Extremities without clubbing, cyanosis, or edema. No obvious deformities. NEUROLOGICAL: Awake and alert. No obvious cranial nerve deficits. Motor grossly within normal limits. Five out of 5 muscle strength in the arms and legs. Normal speech. PSYCHIATRIC: Appropriate mood and affect; insight and judgment normal. Laboratory Laboratory Tests Test 03/06/18 16:20 03/06/18 16:50 03/07/18 04:20 Troponin I 0.03 0.02 Phosphorus Level 3.5 Magnesium Level 1.7 White Blood Count 4.0 Red Blood Count 4.93 Hemoglobin 14.8 Hematocrit 45.4 Mean Corpuscular Volume 92.2 Mean Corpuscular Hemoglobin 30.1 Mean Corpuscular Hemoglobin Concent 32.6 Red Cell Distribution Width 15.7 Platelet Count 170 Mean Platelet Volume 9.6 Neutrophils (%) (Auto) 46.6 Lymphocytes (%) (Auto) 36.1 Monocytes (%) (Auto) 12.6 Eosinophils (%) (Auto) 3.8 Basophils (%) (Auto) 0.9 Neutrophils # (Auto) 1.9 Lymphocytes # (Auto) 1.4 Monocytes # (Auto) 0.5 Eosinophils # (Auto) 0.2 Basophils # (Auto) 0.0 CBC Comment DIFF FINAL Differential Comment Blood Urea Nitrogen 16 Creatinine 1.13 Random Glucose 90 Total Protein 7.0 Albumin 3.4 Calcium Level 9.7 Alkaline Phosphatase 99 Aspartate Amino Transf (AST/SGOT) 31 Alanine Aminotransferase (ALT/SGPT) 22 Total Bilirubin 1.2 Sodium Level 141 Potassium Level 4.6 Chloride Level 105 Carbon Dioxide Level 25.5 Anion Gap 11 Estimat Glomerular Filtration Rate 57 B-Type Natriuretic Peptide 2365 (Shadeed,Marissa CHOI) Result Diagram: 6/1/18 0420 6/1/18 0420 Imaging Last 48 hours Impressions Chest X-Ray 03/06/18 0944 Signed Impressions: CONCLUSION: Cardiomegaly and postsurgical changes. The lungs are clear. Carotid Artery Ultrasound 03/06/18 0000 Signed Impressions: CONCLUSION: There are 50-69% stenoses of both internal carotid arteries. (Marissa Boone) Assessment and Plan Assessment and Plan Dizziness, near syncope New onset Afib Chest pain HTN Elevated BNP Will decrease metoprolol to 50mg BID, BP low. May consider Holter as outpatient. Will start on Eliquis 5 mg BID off label (hx of bovine AVR), due to being poor candidate for coumadin. Troponins negative, reports CP is from fibromyalgia, pain un-changed for several years BP low. Receiving lasix. No signs of fluid overload on exam. May consider holter monitor as outpatient. The patient was seen and evaluated by Dr. Turner who completed face to face encounter and physical exam and particpiated in care, management, and decision making. (Marissa Boone) Assessment and Plan The exam, history, and the medical decision-making described in the above note were completed with the assistance of the mid-level provider. I reviewed and agree with the findings presented. I attest that I had a [id number] encounter with the patient on the same day, and personally performed and documented my assessment and findings in the medical record. Did not tolerate coumadin in past for mechanical AVR (now tissue valve) and Pulmonary embolism. (Radha Turner MD) Marissa Boone Mar 07, 2018 10:53 Radha Tunrer MD Mar 07, 2018 14:37
[2018-03-07] MEDS ORDERED: FLUCONAZOLE 200 MG TAB PO ONE (13:45)
--- NOTE | 2018-03-07 15:05 | EKG ---
Date Performed: 03/06/2018 Time Performed: 21:24:20 PTAGE: 72 years EKG: ATRIAL FIBRILLATION/FLUTTER RIGHT BUNDLE BRANCH BLOCK LEFT POSTERIOR FASCICULAR BLOCK ABNOR MAL ECG Since PREVIOUS TRACING , no significant change noted PREVIOUS TRACIN03/06/2018 16.50 DOCTOR: Neri Mosqueda Interpretating Date/Time 03/07/2018 15:04:06
--- NOTE | 2018-03-07 15:05 | EKG ---
Date Performed: 03/06/2018 Time Performed: 16:50:29 PTAGE: 72 years EKG: ATRIAL FIBRILLATION INCOMPLETE RIGHT BUNDLE BRANCH BLOCK RIGHT VENTRICULAR HYPERTROPHY AND ST-T CHANGE ABNORMAL ECG Compared to PREVIOUS TRACING , the rhythm is more clearly atrial fibrillation. PREVIOUS TRACIN02/06 09.34 DOCTOR: Nrei Mosqueda Interpretating Date/Time 03/07/2018 15:03:44
--- NOTE | 2018-03-07 15:21 | ECHRPT ---
Indication: SYNCOPE CONCLUSIONS Moderately dilated left ventricle. Wall thickness is measured at the upper limits of normal. The left ventricular systolic function is severely reduced with an estimated ejection fraction in th e range of 20-25%. There is global left ventricular dysfunction. The left atrial size is [id number] dilated. The right atrial size is mildly dilated. Mitral annular calcification is present. Severe mitral valve regurgitation. Trace aortic valve regurgitation. There is moderate to severe tricuspid valve regurgitation. The estimated pulmonary arterial pressure is 42 mmHg. BP: / HR: Rhythm: MEASUREMENTS (Male / Female) Normal Values Technical Quality: 2D ECHO LV Diastolic Diameter PLAX 5.0 cm 4.2 - 5.9 / 3.9 - 5.3 cm LV Systolic Diameter PLAX 4.4 cm IVS Diastolic Thickness 1.0 cm 0.6 - 1.0 / 0.6 - 0.9 cm LVPW Diastolic Thickness 0.7 cm 0.6 - 1.0 / 0.6 - 0.9 cm LV Relative Wall Thickness 0.3 RV Internal Dim ED PLAX 2.1 cm LA Systolic Diameter LX 4.8 cm 3.0 - 4.0 / 2.7 - 3.8 cm DOPPLER AV Peak Velocity 183.0 cm/s AV Peak Gradient 13.4 mmHg LVOT Peak Velocity 67.3 cm/s LVOT Peak Gradient 1.8 mmHg MR Peak Velocity 525.0 cm/s MR Peak Gradient 110.3 mmHg Mitral E Point Velocity 147.0 cm/s Mitral A Point Velocity 36.4 cm/s Mitral E to A Ratio 4.0 TR Peak Velocity 305.0 cm/s TR Peak Gradient 37.2 mmHg Right Atrial Pressure 5.0 mmHg Pulmonary Artery Systolic Pressu 42.2 mmHg Right Ventricular Systolic Press 42.2 mmHg FINDINGS LEFT VENTRICLE Moderately dilated left ventricle. Wall thickness is measured at the upper limits of normal. The left ventricular systolic function is severely reduced with an estimated ejection fraction in th e range of 20-25%. There is global left ventricular dysfunction. RIGHT VENTRICLE Normal right ventricular size and systolic function. LEFT ATRIUM The left atrial size is ajnclggl-[id number] dilated. RIGHT ATRIUM The right atrial size is mildly dilated. ATRIAL SEPTUM Normal atrial septal thickness without atrial level shunting by limited color doppler interrogation. AORTA The aortic root and proximal ascending aorta are normal in size on limited imaging. MITRAL VALVE Mitral annular calcification is present. Severe mitral valve regurgitation. AORTIC VALVE Trace aortic valve regurgitation. TRICUSPID VALVE There is moderate to severe tricuspid valve regurgitation. The estimated pulmonary arterial pressure is 42 mmHg. PULMONARY VALVE No pulmonary valve regurgitation or stenosis. VESSELS The inferior vena cava is normal in size. PERICARDIUM A small left sided pleural effusion is noted. Ric Lakhani MD, FACC (Electronically Signed) Final Date:07 March 2018 15:20
[2018-03-07] MEDS ORDERED: DIFL100T PO (16:16)
[2018-03-07] MEDS ORDERED: APIX5TAB PO (16:16)
[2018-03-07] MEDS ORDERED: METO-338 PO (16:25)
[2018-03-07] MEDS: METOPROLOL TARTRATE 50 MG TAB PO SCH (21:33)
[2018-03-07] MEDS: APIXABAN 5 MG TABLET PO SCH (21:33)
[2018-03-07] MEDS: PRAVASTATIN SOD 40 MG TAB PO SCH (21:33)
[2018-03-08] VITALS (10 sets, daily range): BP systolic 98–112; BP diastolic 55–74; PULSE 70–92; RESP 16–18; TEMP 97.3–98; O2SAT 93–99
[2018-03-08 05:45] LABS: HEMATOCRIT 44.3 % (35.0-46.0); HEMOGLOBIN 14.6 GM/DL (11.6-15.3); MEAN CELL VOLUME 91.6 FL (80.0-100.0); MEAN CORPUSCULAR HEMOGLOBIN 30.1 PG (27.0-34.0); MEAN CORPUSCULAR HGB CONC 32.8 % (32.0-36.0); MEAN PLATELET VOLUME 9.4 FL (7.0-11.0); PLATELET COUNT 171 TH/MM3 (150-450); RED BLOOD COUNT 4.84 MIL/MM3 (4.00-5.30); RED CELL DISTRIBUTION WIDTH 15.7 % (11.6-17.2); WHITE BLOOD COUNT 4.2 TH/MM3 (4.0-11.0)
[2018-03-08 06:15] LABS: BICARBONATE 25.6 MEQ/L (21.0-32.0); CALCIUM 9.7 MG/DL (8.5-10.1); CREATININE 1.05 MG/DL (0.50-1.00)
[2018-03-08] MEDS: SODIUM CHLORIDE 0.9% FLUSH 10 ML FLUSH IV FLUSH SCH ×2 (09:00→21:00)
[2018-03-08] MEDS: NYSTAT/DIPHENHY/LIDO MOUTHWASH (Adult) 120ML SWISH-SWAL SCH ×4 (09:08→21:00)
[2018-03-08] MEDS: APIXABAN 5 MG TABLET PO SCH ×2 (09:10→21:00)
[2018-03-08] MEDS: DOCUSATE SODIUM 50 MG/SENNA 8.6 MG TAB PO SCH ×2 (09:10→21:00)
[2018-03-08] MEDS: METOPROLOL TARTRATE 50 MG TAB PO SCH ×2 (09:10→21:00)
[2018-03-08] MEDS: FLUCONAZOLE 100 MG TAB PO SCH (09:10)
[2018-03-08] MEDS: ACETAMINOPHEN/HYDROcodone 325 MG/5 MG TAB PO PRN (09:10)
[2018-03-08] MEDS: FUROSEMIDE 20 MG TAB PO SCH (09:12)
[2018-03-08] MEDS ORDERED: ACETAMINOPHEN/HYDROcodone 325 MG/5 MG TAB PO PRN (10:15)
[2018-03-08] MEDS ORDERED: ACETAMINOPHEN/HYDROcodone 325 MG/7.5 MG TAB PO PRN (10:15)
[2018-03-08] MEDS ORDERED: RESP: ALBUTEROL 2.5 MG/IPRATROPIUM 0.5 MG NEB (PRN) NEB (10:15)
[2018-03-08] MEDS ORDERED: FUROSEMIDE 20 MG TAB PO ONE (11:00)
--- NOTE | 2018-03-08 11:03 | RADRPT ---
EXAM DATE: 03/08/2018 11:00 AM EDT AGE/SEX: 72 years / Female INDICATIONS: Shortness of breath. CLINICAL DATA: This is the patient's subsequent encounter. Patient reports that signs and symptoms h ave been present for 3 days and indicates a pain score of 0/10. MEDICAL/SURGICAL HISTORY: Congestive heart failure. Hypertension. Hyperthyroidism. Coronary artery disease. Pulmonary embolism. Cardiac cath. CABG. Aortic valve replacement X2. COMPARISON: [facility] [place], CHEST PA & LAT, 01/24/2018. . FINDINGS: AP upright view of the chest demonstrates stable appearance of moderate cardiomegaly with diffuse cep halization of pulmonary vasculature. Hazy indistinctness of the adjacent pulmonary parenchyma. Multip le intact median sternotomy wires. Osseous structures are unremarkable. CONCLUSION: Cardiomegaly with radiographic features of congestive heart failure and pulmonary edema. Electronically signed by: Paty Robbins MD 03/08/2018 11:02 AM EDT
--- NOTE | 2018-03-08 12:31 | PD.CARD.PN ---
Subjective Subjective Remarks Called by resident about increasing BNP, Echo results of severe LV dysfunction and severe MR. Patient not SOB at bedrest. Denies CP. Objective Medications Current Medications Medications (Trade) Dose Ordered Sig/Sy Route Start Time Stop Time Status Last Admin (Proair Hfa Inh) 2 puff Q6H PRN INH 03/06/18 12:15 (Pravachol) 40 mg HS PO 03/06/18 21:00 03/07/18 21:33 Patient Own Medication PT OWN MED: JENNIFER... DAILY INH 03/07/18 09:00 Future Hold (Sasha-Colace) 1 tab BID PO 03/06/18 12:30 03/08/18 09:10 (Milk Of Magnesia Liq) 30 ml Q12H PRN PO 03/06/18 12:30 (Senokot) 17.2 mg Q12H PRN PO 03/06/18 12:30 (Dulcolax Supp) 10 mg DAILY PRN RECTAL 03/06/18 12:30 (Lactulose Liq) 30 ml DAILY PRN PO 03/06/18 12:30 (NS Flush) 2 ml UNSCH PRN IV FLUSH 03/06/18 13:00 (NS Flush) 2 ml BID IV FLUSH 03/06/18 21:00 03/08/18 09:00 (Magic Mouthwash Adult Liq) 10 ml QID SWISH-SWAL 03/06/18 18:00 03/08/18 09:08 (Restoril) 15 mg HS PRN PO 03/06/18 21:00 (Narcan Inj) 0.4 mg UNSCH PRN IV PUSH 03/06/18 14:30 (Zofran Odt) 4 mg Q6H PRN PO 03/06/18 14:30 (Tylenol) 650 mg Q4H PRN PO 03/06/18 23:45 (Eliquis) 5 mg BID PO 03/07/18 21:00 03/08/18 09:10 (Diflucan) 100 mg DAILY PO 03/08/18 09:00 03/08/18 09:10 (Lopressor) 50 mg BID PO 03/07/18 21:00 03/08/18 09:10 ([place] 5-325 Mg) 1 tab Q4HR PRN PO 03/08/18 10:15 (Duoneb Neb) 1 ampule Q6HR NEB PRN NEB 03/08/18 10:15 ([place] 7.5-325 Mg) 1 tab Q4H PRN PO 03/08/18 10:15 (Lasix) 40 mg DAILY PO 03/09/18 09:00 (Entresto 24-26 Mg) 1 tab BID PO 03/08/18 12:00 Vital Signs / I&O Vital Signs Date Time Temp Pulse Resp B/P (MAP) Pulse Ox O2 Delivery O2 Flow Rate FiO2 03/08/18 08:00 97.3 92 18 110/66 (81) 94 03/08/18 08:00 87 03/08/18 07:15 Room Air 03/08/18 04:30 97.8 70 16 98/73 (81) 93 03/08/18 04:00 88 03/08/18 04:00 Room Air 03/08/18 02:55 75 03/08/18 00:00 Room Air 03/08/18 00:00 78 03/07/18 23:30 98.3 64 16 100/62 (75) 94 03/07/18 23:00 18 03/07/18 21:35 Room Air 03/07/18 20:45 98.4 105 16 106/66 (79) 94 03/07/18 20:02 81 03/07/18 17:26 97 21 03/07/18 16:02 89 03/07/18 16:00 Nasal Cannula 2.00 03/07/18 16:00 98.0 84 18 96/62 (73) 96 I/O 03/07/18 03/07/18 03/07/18 03/08/18 03/08/18 03/08/18 07:00 15:00 23:00 07:00 15:00 23:00 Intake Total 0 ml 560 ml 0 ml Output Total 300 ml Balance 0 ml 560 ml -300 ml Intake Oral 0 ml 560 ml 0 ml Output Urine Total 300 ml # Voids 3 2 # Bowel Movements 1 1 Physical Exam VSS, afebrile Mild JVD at 45 deg. Lungs: basilar cracles or right. Heart: irregular, s2, s2, 1/6 systolic murmur LSB and apex. Ext: No C/C/E Laboratory Laboratory Tests Test 03/07/18 16:11 03/08/18 04:50 03/08/18 10:40 HIV (1&2) Ab and P24 Ag, 4th Gener NONREACTIVE White Blood Count 4.2 TH/MM3 Red Blood Count 4.84 MIL/MM3 Hemoglobin 14.6 GM/DL Hematocrit 44.3 % Mean Corpuscular Volume 91.6 FL Mean Corpuscular Hemoglobin 30.1 PG Mean Corpuscular Hemoglobin Concent 32.8 % Red Cell Distribution Width 15.7 % Platelet Count 171 TH/MM3 Mean Platelet Volume 9.4 FL Blood Urea Nitrogen 15 MG/DL Creatinine 1.05 MG/DL Random Glucose 92 MG/DL Calcium Level 9.7 MG/DL Sodium Level 140 MEQ/L Potassium Level 4.5 MEQ/L Chloride Level 104 MEQ/L Carbon Dioxide Level 25.6 MEQ/L Anion Gap 10 MEQ/L Estimat Glomerular Filtration Rate 63 ML/MIN Troponin I 0.02 NG/ML Imaging Echo report reviewed. CONCLUSIONS Moderately dilated left ventricle. Wall thickness is measured at the upper limits of normal. The left ventricular systolic function is severely reduced with an estimated ejection fraction in the range of 20-25%. There is global left ventricular dysfunction. The left atrial size is cuaeeupd-hb-dlghjswu dilated. The right atrial size is mildly dilated. Mitral annular calcification is present. Severe mitral valve regurgitation. Trace aortic valve regurgitation. There is moderate to severe tricuspid valve regurgitation. The estimated pulmonary arterial pressure is 42 mmHg. Last 24 hours Impressions Chest X-Ray 03/08/18 0000 Signed Impressions: CONCLUSION: Cardiomegaly with radiographic features of congestive heart failure and pulmona ry edema. Assessment and Plan Problem List: (1) Mitral regurgitation ICD Codes: I34.0 - Nonrheumatic mitral (valve) insufficiency (2) Acute systolic CHF (congestive heart failure) ICD Codes: I50.21 - Acute systolic (congestive) heart failure (3) COPD (chronic obstructive pulmonary disease) ICD Codes: J44.9 - COPD (chronic obstructive pulmonary disease) Status: Chronic (4) CKD (chronic kidney disease), stage III ICD Codes: N18.3 - CKD (chronic kidney disease), stage III Status: Acute (5) H/O aortic valve replacement ICD Codes: Z95.2 - History of aortic valve replacement Status: Acute (6) Tricuspid insufficiency ICD Codes: I07.1 - Rheumatic tricuspid insufficiency (7) Permanent atrial fibrillation ICD Codes: I48.2 - Chronic atrial fibrillation (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 Start Entresto 24/26 mg BID as tolerated by BP. Discussed with resident staff. Following Emanuel Overton MD Mar 08, 2018 12:31
--- NOTE | 2018-03-08 13:12 | HHI.FPPN ---
Subjective Remarks Patient was sitting up in a chair eating breakfast. She complained of intermittent sharp pain in her left shoulder. She is breathing comfortably on room air. She denies fever or chills. She still continues to have issues with foot swelling up in her mouth. (EkAster canales MD R2) Objective Vitals Vital Signs Date Time Temp Pulse Resp B/P (MAP) Pulse Ox O2 Delivery O2 Flow Rate FiO2 03/08/18 08:00 97.3 92 18 110/66 (81) 94 03/08/18 08:00 87 03/08/18 07:15 Room Air 03/08/18 04:30 97.8 70 16 98/73 (81) 93 03/08/18 04:00 88 03/08/18 04:00 Room Air 03/08/18 02:55 75 03/08/18 00:00 Room Air 03/08/18 00:00 78 03/07/18 23:30 98.3 64 16 100/62 (75) 94 03/07/18 23:00 18 03/07/18 21:35 Room Air 03/07/18 20:45 98.4 105 16 106/66 (79) 94 03/07/18 20:02 81 03/07/18 17:26 97 21 03/07/18 16:02 89 03/07/18 16:00 Nasal Cannula 2.00 03/07/18 16:00 98.0 84 18 96/62 (73) 96 I/O 03/07/18 03/07/18 03/07/18 03/08/18 03/08/18 03/08/18 07:00 15:00 23:00 07:00 15:00 23:00 Intake Total 0 ml 560 ml 0 ml Output Total 300 ml Balance 0 ml 560 ml -300 ml Intake Oral 0 ml 560 ml 0 ml Output Urine Total 300 ml # Voids 3 2 # Bowel Movements 1 1 (EkAster canales MD R2) Result Diagram: 03/08/18 0450 03/08/18 0450 Objective Remarks GENERAL: female patient in no acute distress. SKIN: Warm and dry. HEAD: Normocephalic. EYES: No scleral icterus. No injection or drainage. MOUTH: Geographic tongue, no overt signs of thrush NECK: Supple, trachea midline. No JVD or lymphadenopathy. CARDIOVASCULAR: Slightly tachycardic rate, irregular rhythm, no murmurs, gallops , or rubs. RESPIRATORY: Breath sounds equal bilaterally. No accessory muscle use. GASTROINTESTINAL: Abdomen soft, non-tender, nondistended. MUSCULOSKELETAL: No cyanosis, or edema. BACK: Nontender without obvious deformity. (Eko,Aster TAVERAS R2) A/P Assessment and Plan Patient is a 72 year old female admitted for near syncope. Discharge Planning Discharge home pending resolution of heart failure (Eko,Aster TAVERAS R2) Attending Attestation Pt. examined independently and case discussed with resident physicians. I have read the above note and agree with the assessment and plan as discussed with me. I was involved in all medical decision making for this patient. Jp Mayberry MD (Jp Mayberry MD) Problem List: (1) CHF exacerbation ICD Codes: I50.9 - Heart failure, unspecified Plan: -Repeat chest x-ray this a.m. shows cardiomegaly with radiographic features of CHF and pulmonary edema compared to chest x-ray on admission which only showed cardiomegaly -Repeat troponin less than 0.02 -BNP elevated at 2365 on 03/07, repeat BNP pending -2D echo on 03/07/2018 shows moderately dilated left ventricle with global left ventricular dysfunction. Left atrial size is moderate to severely dilated. Severely reduced ventricular systolic function with an estimated EF of 20-25%. Severe mitral valve regurgitation and moderate to severe tricuspid valve regurgitation -Cardiology on board -[employer] Advisor is Dr. Turner, Dr. Gamboa covering this weekend * Start Entresto at lowest dose 24-26 milligrams p.o. twice daily * Increase Lasix to 40 mg p.o. daily -Supplemental 02 as needed -Strict Is and Os -Fluid restrict to 1800 ml per 24 hours -Continuous cardiac telemetry -Vitals every 4 hours -Out of bed with assistance -Fall precautions (2) New onset a-fib ICD Codes: I48.91 - Unspecified atrial fibrillation Plan: -Continue Metoprolol 50 mg PO BID -Continue Eliquis 5mg PO BID (3) Near syncope ICD Codes: R55 - Syncope and collapse Status: Resolved Plan: Vitals stable -Carotid ultrasound shows 50-69% stenosis of both internal carotid arteries -2D echo on 03/07/2018 shows moderately dilated left ventricle with global left ventricular dysfunction. Left atrial size is moderate to severely dilated. Severely reduced ventricular systolic function with an estimated EF of 20-25%. Severe mitral valve regurgitation and moderate to severe tricuspid valve regurgitation -Cardiology on board -See plan above (4) CAD (coronary artery disease) ICD Codes: I25.10 - Atherosclerotic heart disease of [place] coronary artery without angina pectoris Status: Chronic Plan: -History of aortic valve replacement 2 -Continue metoprolol 50 mg p.o. twice daily (5) HTN (hypertension) ICD Codes: I10 - HTN (hypertension) Status: Chronic Plan: Stable -On metoprolol 50 mg p.o. twice daily (6) COPD (chronic obstructive pulmonary disease) ICD Codes: J44.9 - COPD (chronic obstructive pulmonary disease) Status: Chronic Plan: -Stable, no shortness of breath on room air -Continue Ellipta inhaler -Continue Albuterol 8.5gm inhaler -Duonebs prn (7) History of DVT (deep vein thrombosis) ICD Codes: Z86.718 - Personal history of other venous thrombosis and embolism Status: Chronic Plan: On Eliquis Bilateral SCDs (8) Constipation ICD Codes: K59.00 - Constipation, unspecified Status: Chronic Plan: Patient reports chronic problem with constipation constipation medication protocol Monitor I's and Os (9) CKD (chronic kidney disease) ICD Codes: N18.9 - Chronic kidney disease, unspecified Status: Chronic Plan: Creatinine 1.20 on admission, 1.05 today CKD stage III per chart review Avoid nephrotoxic agents (10) Fibromyalgia ICD Codes: M79.7 - Fibromyalgia Status: Chronic Plan: Stable, takes Extra strength Tylenol at home -On [place] (11) FEN Status: Acute Plan: Fluids: Oral fluids, strict Is and Os Electrolytes: Will monitor and replace as needed Nutrition: Heart healthy diet, mechanical soft solids, thin liquids, ensure with all meals (Aster Coyne MD R2) Problem Qualifiers (1) CKD (chronic kidney disease): Qualified Codes: N18.3 - Chronic kidney disease, stage 3 (moderate) Aster Coyne MD R2 Mar 08, 2018 13:12 Jp Mayberry MD Mar 08, 2018 18:02
[2018-03-08] MEDS: SACUBITRIL/VALSARTAN 24 MG-26 MG TAB PO SCH ×2 (13:56→21:11)
[2018-03-08] MEDS: PRAVASTATIN SOD 40 MG TAB PO SCH (21:00)
[2018-03-09] VITALS (9 sets, daily range): BP systolic 98–123; BP diastolic 56–83; PULSE 75–100; RESP 16–19; TEMP 97.2–98.1; O2SAT 94–98
[2018-03-09 07:16] LABS: HEMATOCRIT 45.7 % (35.0-46.0); HEMOGLOBIN 15.1 GM/DL (11.6-15.3); MEAN CELL VOLUME 92.2 FL (80.0-100.0); MEAN CORPUSCULAR HEMOGLOBIN 30.4 PG (27.0-34.0); MEAN PLATELET VOLUME 9.7 FL (7.0-11.0); PLATELET COUNT 170 TH/MM3 (150-450); RED BLOOD COUNT 4.96 MIL/MM3 (4.00-5.30); RED CELL DISTRIBUTION WIDTH 15.2 % (11.6-17.2); WHITE BLOOD COUNT 4.9 TH/MM3 (4.0-11.0)
--- NOTE | 2018-03-09 07:27 | PD.CARD.PN ---
Subjective Subjective Remarks Called by resident yesterday about increasing BNP, Echo results of severe LV dysfunction and severe MR. Oleksandro started. Tolerating. Patient not SOB at bedrest. Denies CP. Objective Medications Current Medications Medications (Trade) Dose Ordered Sig/Sy Route Start Time Stop Time Status Last Admin (Proair Hfa Inh) 2 puff Q6H PRN INH 03/06/18 12:15 (Pravachol) 40 mg HS PO 03/06/18 21:00 03/08/18 21:00 Patient Own Medication PT OWN MED: JENNIFER... DAILY INH 03/07/18 09:00 Future Hold (Sasha-Colace) 1 tab BID PO 03/06/18 12:30 03/08/18 09:10 (Milk Of Magnesia Liq) 30 ml Q12H PRN PO 03/06/18 12:30 (Senokot) 17.2 mg Q12H PRN PO 03/06/18 12:30 (Dulcolax Supp) 10 mg DAILY PRN RECTAL 03/06/18 12:30 (Lactulose Liq) 30 ml DAILY PRN PO 03/06/18 12:30 (NS Flush) 2 ml UNSCH PRN IV FLUSH 03/06/18 13:00 (NS Flush) 2 ml BID IV FLUSH 03/06/18 21:00 03/08/18 21:00 (Magic Mouthwash Adult Liq) 10 ml QID SWISH-SWAL 03/06/18 18:00 03/08/18 21:00 (Restoril) 15 mg HS PRN PO 03/06/18 21:00 (Narcan Inj) 0.4 mg UNSCH PRN IV PUSH 03/06/18 14:30 (Zofran Odt) 4 mg Q6H PRN PO 03/06/18 14:30 (Tylenol) 650 mg Q4H PRN PO 03/06/18 23:45 (Eliquis) 5 mg BID PO 03/07/18 21:00 03/08/18 21:00 (Diflucan) 100 mg DAILY PO 03/08/18 09:00 03/08/18 09:10 (Lopressor) 50 mg BID PO 03/07/18 21:00 03/08/18 09:10 (Aurora 5-325 Mg) 1 tab Q4HR PRN PO 03/08/18 10:15 (Duoneb Neb) 1 ampule Q6HR NEB PRN NEB 03/08/18 10:15 (Aurora 7.5-325 Mg) 1 tab Q4H PRN PO 03/08/18 10:15 03/08/18 13:30 (Lasix) 40 mg DAILY PO 03/09/18 09:00 (Entresto 24-26 Mg) 1 tab BID PO 03/08/18 12:00 03/08/18 13:56 Vital Signs / I&O Vital Signs Date Time Temp Pulse Resp B/P (MAP) Pulse Ox O2 Delivery O2 Flow Rate FiO2 03/09/18 06:00 97.6 92 19 106/62 (77) 97 03/09/18 04:42 88 03/09/18 00:41 100 03/09/18 00:00 97.2 76 19 98/65 (76) 97 03/08/18 21:09 98.0 86 18 102/65 (77) 98 03/08/18 20:55 99 21 03/08/18 20:00 80 03/08/18 16:00 85 03/08/18 16:00 97.3 72 18 104/74 (84) 94 03/08/18 12:00 87 03/08/18 12:00 97.3 79 18 112/55 (74) 94 03/08/18 08:00 97.3 92 18 110/66 (81) 94 03/08/18 08:00 87 I/O 03/08/18 03/08/18 03/08/18 03/09/18 03/09/18 03/09/18 07:00 15:00 23:00 07:00 15:00 23:00 Intake Total 0 ml 720 ml 240 ml Output Total 300 ml 900 ml Balance -300 ml 720 ml -660 ml Intake Oral 0 ml 720 ml 240 ml Output Urine Total 300 ml 900 ml # Voids 3 # Bowel Movements 1 0 Physical Exam VSS, afebrile Mild JVD at 45 deg. Lungs: CTA Heart: irregular, s2, s2, 1/6 systolic murmur LSB and apex. Ext: No C/C/E Laboratory Laboratory Tests Test 03/08/18 10:40 03/09/18 06:32 Troponin I 0.02 NG/ML White Blood Count 4.9 TH/MM3 Red Blood Count 4.96 MIL/MM3 Hemoglobin 15.1 GM/DL Hematocrit 45.7 % Mean Corpuscular Volume 92.2 FL Mean Corpuscular Hemoglobin 30.4 PG Mean Corpuscular Hemoglobin Concent 33.0 % Red Cell Distribution Width 15.2 % Platelet Count 170 TH/MM3 Mean Platelet Volume 9.7 FL Imaging Last 48 hours Impressions Chest X-Ray 03/08/18 0000 Signed Impressions: CONCLUSION: Cardiomegaly with radiographic features of congestive heart failure and pulmona ry edema. Assessment and Plan Problem List: (1) Mitral regurgitation ICD Codes: I34.0 - Nonrheumatic mitral (valve) insufficiency (2) Acute systolic CHF (congestive heart failure) ICD Codes: I50.21 - Acute systolic (congestive) heart failure (3) COPD (chronic obstructive pulmonary disease) ICD Codes: J44.9 - COPD (chronic obstructive pulmonary disease) Status: Chronic (4) CKD (chronic kidney disease), stage III ICD Codes: N18.3 - CKD (chronic kidney disease), stage III Status: Acute (5) H/O aortic valve replacement ICD Codes: Z95.2 - History of aortic valve replacement Status: Acute (6) Tricuspid insufficiency ICD Codes: I07.1 - Rheumatic tricuspid insufficiency (7) Permanent atrial fibrillation ICD Codes: I48.2 - Chronic atrial fibrillation (8) safety lead (current) use of anticoagulants ICD Codes: Z79.01 - MCFP (current) use of anticoagulants (9) Dilated cardiomyopathy ICD Codes: I42.0 - Dilated cardiomyopathy Assessment and Plan Hemodynamic stable tolerating med changes. Continue Lasix 40 mg po daily and Entresto 24/26 mg BID as tolerated by BP. Discussed with resident staff. Dr. Turner will see on Saturday. Emanuel Overton MD Mar 09, 2018 07:27
[2018-03-09 07:42] LABS: BICARBONATE 28.2 MEQ/L (21.0-32.0); CALCIUM 9.6 MG/DL (8.5-10.1); CREATININE 1.02 MG/DL (0.50-1.00)
--- NOTE | 2018-03-09 08:56 | RADRPT ---
EXAM DATE: 03/09/2018 8:51 AM EDT AGE/SEX: 72 years / Female INDICATIONS: CHF CLINICAL DATA: This is the patient's subsequent encounter. Patient reports that signs and symptoms h ave been present for 1 day and indicates a pain score of 0/10. MEDICAL/SURGICAL HISTORY: . Congestive heart failure. Hypertension. Hyperthyroidism. Coronary artery disease. Pulmonary embolism. . Cardiac cath. CABG. Aortic valve replacement X2. [place] [facility] [place]. . FINDINGS: PA lateral views of the chest demonstrate significant cardiomegaly with diffuse cephalization of pulm onary vasculature. Perivascular parenchyma appears hazy and somewhat indistinct. Intact median sterno bello wires. Osseous structures are intact. CONCLUSION: Stable appearance of congestive heart failure and pulmonary edema. Electronically signed by: Paty Robbins MD 03/09/2018 8:54 AM EDT
[2018-03-09] MEDS: SODIUM CHLORIDE 0.9% FLUSH 10 ML FLUSH IV FLUSH SCH ×2 (09:00→21:00)
[2018-03-09] MEDS: FUROSEMIDE 40 MG TAB PO SCH (09:12)
[2018-03-09] MEDS: METOPROLOL TARTRATE 50 MG TAB PO SCH ×2 (09:12→20:59)
[2018-03-09] MEDS: DOCUSATE SODIUM 50 MG/SENNA 8.6 MG TAB PO SCH ×2 (09:13→21:00)
[2018-03-09] MEDS: FLUCONAZOLE 100 MG TAB PO SCH (09:14)
[2018-03-09] MEDS: SACUBITRIL/VALSARTAN 24 MG-26 MG TAB PO SCH ×2 (09:14→21:00)
[2018-03-09] MEDS: NYSTAT/DIPHENHY/LIDO MOUTHWASH (Adult) 120ML SWISH-SWAL SCH ×4 (09:14→21:00)
[2018-03-09] MEDS: APIXABAN 5 MG TABLET PO SCH ×2 (09:19→21:15)
--- NOTE | 2018-03-09 09:26 | HHI.FPPN ---
Subjective Remarks No acute events overnight. Patient sitting up in bed. Patient reports that she does not have any shortness of breath. She has been going to the bathroom a lot due to her Lasix. Feels that she is breathing better. She reports that she is still having trouble eating due to "thrush." she was placed on fluconazole 2 days ago. Advised patient that it would take a couple days to work. She denies any chest pain and nausea vomiting. No other complaints. (Saumya Frye MD R1) Objective Vitals Vital Signs Date Time Temp Pulse Resp B/P (MAP) Pulse Ox O2 Delivery O2 Flow Rate FiO2 03/09/18 08:00 98.1 92 16 107/59 (75) 97 03/09/18 06:00 97.6 92 19 106/62 (77) 97 03/09/18 04:42 88 03/09/18 00:41 100 03/09/18 00:00 97.2 76 19 98/65 (76) 97 03/08/18 21:09 98.0 86 18 102/65 (77) 98 03/08/18 20:55 99 21 03/08/18 20:00 80 03/08/18 16:00 85 03/08/18 16:00 97.3 72 18 104/74 (84) 94 03/08/18 12:00 87 03/08/18 12:00 97.3 79 18 112/55 (74) 94 I/O 03/08/18 03/08/18 03/08/18 03/09/18 03/09/18 03/09/18 07:00 15:00 23:00 07:00 15:00 23:00 Intake Total 0 ml 720 ml 240 ml Output Total 300 ml 900 ml Balance -300 ml 720 ml -660 ml Intake Oral 0 ml 720 ml 240 ml Output Urine Total 300 ml 900 ml # Voids 3 # Bowel Movements 1 0 (Saumya Frye MD R1) Result Diagram: 03/09/18 0632 03/09/18 0632 Objective Remarks GENERAL: female patient in no acute distress. SKIN: Warm and dry. HEAD: Normocephalic. EYES: No scleral icterus. No injection or drainage. MOUTH: Geographic tongue, no overt signs of thrush NECK: Supple, trachea midline. No JVD or lymphadenopathy. CARDIOVASCULAR: Slightly tachycardic rate, irregular rhythm, no murmurs, gallops , or rubs. RESPIRATORY: Breath sounds equal bilaterally. No accessory muscle use. No crackles or wheezing. GASTROINTESTINAL: Abdomen soft, non-tender, nondistended. EXT: no edema in lower extremities. MUSCULOSKELETAL: No cyanosis, or edema. BACK: Nontender without obvious deformity. (Saumya Frye MD R1) A/P Assessment and Plan Patient is a 72 year old female admitted for near syncope. Discharge Planning Discharge home pending resolution of heart failure Dr. Lujan to see patient tomorrow Saturday Home with NO PT or OT (Saumya Frye MD R1) Attending Attestation Patient examined independently and case discussed with resident physician I have read the above note and agree with the assessment/plan as discussed with me. I was involved in all medical decision making for this patient Jp Mayberry MD (Jp Mayberry MD) Problem List: (1) CHF exacerbation ICD Codes: I50.9 - Heart failure, unspecified Plan: -Repeat chest x-ray 03/08 shows cardiomegaly with radiographic features of CHF and pulmonary edema compared to chest x-ray on admission which only showed cardiomegaly -Repeat troponin less than 0.02 -BNP elevated at 2365 on 03/07, repeat BNP elevated at 2668 this morning, patient is asymptomatic this morning, lungs CTAB, no crackles, no lower extremity edema -2D echo on 03/07/2018 shows moderately dilated left ventricle with global left ventricular dysfunction. Left atrial size is moderate to severely dilated. Severely reduced ventricular systolic function with an estimated EF of 20-25%. Severe mitral valve regurgitation and moderate to severe tricuspid valve regurgitation -Cardiology on board -[employer] Man is Dr. Turner, Dr. Gamboa covering this weekend * Continue Entresto at lowest dose 24-26 milligrams p.o. twice daily * Continue Lasix to 40 mg p.o. daily -Supplemental 02 as needed -Strict Is and Os -Fluid restrict to 1800 ml per 24 hours -Continuous cardiac telemetry -Vitals every 4 hours -Out of bed with assistance -Fall precautions (2) New onset a-fib ICD Codes: I48.91 - Unspecified atrial fibrillation Plan: -Continue Metoprolol 50 mg PO BID -Continue Eliquis 5mg PO BID (3) Near syncope ICD Codes: R55 - Syncope and collapse Status: Resolved Plan: Vitals stable -Carotid ultrasound shows 50-69% stenosis of both internal carotid arteries -2D echo on 03/07/2018 shows moderately dilated left ventricle with global left ventricular dysfunction. Left atrial size is moderate to severely dilated. Severely reduced ventricular systolic function with an estimated EF of 20-25%. Severe mitral valve regurgitation and moderate to severe tricuspid valve regurgitation -Cardiology on board -See plan above (4) CAD (coronary artery disease) ICD Codes: I25.10 - Atherosclerotic heart disease of [place] coronary artery without angina pectoris Status: Chronic Plan: -History of aortic valve replacement 2 -Continue metoprolol 50 mg p.o. twice daily (5) HTN (hypertension) ICD Codes: I10 - HTN (hypertension) Status: Chronic Plan: Stable -On metoprolol 50 mg p.o. twice daily (6) COPD (chronic obstructive pulmonary disease) ICD Codes: J44.9 - COPD (chronic obstructive pulmonary disease) Status: Chronic Plan: -Stable, no shortness of breath on room air -Continue Ellipta inhaler -Continue Albuterol 8.5gm inhaler -Duonebs prn (7) History of DVT (deep vein thrombosis) ICD Codes: Z86.718 - Personal history of other venous thrombosis and embolism Status: Chronic Plan: On Eliquis Bilateral SCDs (8) Constipation ICD Codes: K59.00 - Constipation, unspecified Status: Chronic Plan: Patient reports chronic problem with constipation constipation medication protocol Monitor I's and Os (9) CKD (chronic kidney disease) ICD Codes: N18.9 - Chronic kidney disease, unspecified Status: Chronic Plan: Creatinine 1.20 on admission, improved to 1.02 today CKD stage III per chart review Avoid nephrotoxic agents (10) Fibromyalgia ICD Codes: M79.7 - Fibromyalgia Status: Chronic Plan: Stable, takes Extra strength Tylenol at home -On [place] (11) FEN Status: Acute Plan: Fluids: Oral fluids, strict Is and Os Electrolytes: Will monitor and replace as needed Nutrition: Heart healthy diet, mechanical soft solids, thin liquids, ensure with all meals (Saumya Frye MD R1) Problem Qualifiers (1) CKD (chronic kidney disease): Qualified Codes: N18.3 - Chronic kidney disease, stage 3 (moderate) Saumya Frye MD R1 Mar 09, 2018 09:26 Jp Mayberry MD Mar 09, 2018 11:44
--- NOTE | 2018-03-09 15:48 | EKG ---
Date Performed: 03/08/2018 Time Performed: 10:30:52 PTAGE: 72 years EKG: Atrial flutter with controlled ventricular response Right bundle branch block Left axis dev iation Intermediate axis Abnormal ECG PREVIOUS TRACING 03/06/18 Since previous tracing, no significant change. DOCTOR: Cisco Kenney Interpretating Date/Time 03/09/2018 15:48:18
[2018-03-09] MEDS: PRAVASTATIN SOD 40 MG TAB PO SCH (20:59)
[2018-03-10] VITALS (7 sets, daily range): BP systolic 92–103; BP diastolic 58–77; PULSE 76–98; RESP 17–18; TEMP 97.8–98.4; O2SAT 96–98
[2018-03-10 06:59] LABS: HEMATOCRIT 45.2 % (35.0-46.0); MEAN CELL VOLUME 91.5 FL (80.0-100.0); MEAN CORPUSCULAR HEMOGLOBIN 30.4 PG (27.0-34.0); MEAN CORPUSCULAR HGB CONC 33.3 % (32.0-36.0); MEAN PLATELET VOLUME 9.7 FL (7.0-11.0); PLATELET COUNT 163 TH/MM3 (150-450); RED BLOOD COUNT 4.94 MIL/MM3 (4.00-5.30); RED CELL DISTRIBUTION WIDTH 15.6 % (11.6-17.2); WHITE BLOOD COUNT 4.8 TH/MM3 (4.0-11.0)
[2018-03-10 07:24] LABS: BICARBONATE 26.5 MEQ/L (21.0-32.0); CALCIUM 9.7 MG/DL (8.5-10.1); CREATININE 0.96 MG/DL (0.50-1.00)
[2018-03-10] MEDS: METOPROLOL TARTRATE 50 MG TAB PO SCH (09:00)
[2018-03-10] MEDS: APIXABAN 5 MG TABLET PO SCH (09:02)
[2018-03-10] MEDS: SODIUM CHLORIDE 0.9% FLUSH 10 ML FLUSH IV FLUSH SCH (09:02)
[2018-03-10] MEDS: SACUBITRIL/VALSARTAN 24 MG-26 MG TAB PO SCH (09:02)
[2018-03-10] MEDS: FLUCONAZOLE 100 MG TAB PO SCH (09:02)
[2018-03-10] MEDS: NYSTAT/DIPHENHY/LIDO MOUTHWASH (Adult) 120ML SWISH-SWAL SCH ×2 (09:03→13:01)
[2018-03-10] MEDS: DOCUSATE SODIUM 50 MG/SENNA 8.6 MG TAB PO SCH (09:03)
[2018-03-10] MEDS: FUROSEMIDE 40 MG TAB PO SCH (09:04)
--- NOTE | 2018-03-10 10:16 | HHI.FPPN ---
Subjective Remarks Patient seen and examined this morning. No acute events overnight per nursing staff. Patient remains hypotensive, which appears to be her baseline as she has remained asymptomatic. On telemetry, patient has had multiple events of recorded "V. tach" which is consistent with artifact and isolated PVCs per medical team read. However, patient has had isolated events of sinus tachycardia to the 130s without symptoms. Per chart review, patient has had multiple episodes of hypotension resulting in her metoprolol being held including today (03/10/18). Today the patient's only complaint is continued difficulty swallowing. The patient states that she is unable to swallow due to "food swelling up in her mouth." She is able to tolerate a soft mechanical and liquid diet. Otherwise she has no complaints and denies any fevers, chills, shortness of breath, chest pain, NVD, abdominal pain, or calf tenderness at this time. (Ryan Bauman MD R2) Objective Vitals Vital Signs Date Time Temp Pulse Resp B/P (MAP) Pulse Ox O2 Delivery O2 Flow Rate FiO2 03/10/18 08:07 97.8 83 17 94/77 (83) 98 03/10/18 04:00 76 03/10/18 04:00 Room Air 03/10/18 04:00 98.1 83 18 92/58 (69) 97 03/10/18 00:00 98.4 93 18 103/60 (74) 97 03/10/18 00:00 93 03/10/18 00:00 Room Air 03/09/18 20:00 92 03/09/18 20:00 Room Air 03/09/18 20:00 98.0 95 18 123/56 (78) 98 03/09/18 16:00 98.0 87 16 98/83 (88) 95 03/09/18 16:00 92 03/09/18 12:40 75 03/09/18 12:00 97.5 86 16 101/69 (80) 94 I/O 03/09/18 03/09/18 03/09/18 03/10/18 03/10/18 03/10/18 07:00 15:00 23:00 07:00 15:00 23:00 Intake Total 240 ml 480 ml 237 ml Output Total 900 ml 100 ml Balance -660 ml 480 ml 137 ml Intake Oral 240 ml 480 ml 237 ml Output Urine Total 900 ml 100 ml # Voids 4 1 # Bowel Movements 0 0 (Ryan Bauman MD R2) Result Diagram: 03/10/18 0554 03/10/18 0554 Objective Remarks GENERAL: Elderly female lying in bed in no acute distress. SKIN: Warm and dry. No rash. HEENT: Atraumatic, normocephalic with extraocular motions intact. No rhinorrhea. No visible lymphadenopathy or jugulovenous distension appreciated. CARDIOVASCULAR: Tachycardic rate rate to the 90s with regular rhythm. No obvious murmurs, gallops, or rubs. RESPIRATORY: Clear to auscultation bilaterally with no crackles, wheezes, or rhonchi. No increased work of breathing. GASTROINTESTINAL: Abdomen soft, non-tender, nondistended with positive bowel sounds. No masses appreciated. MUSCULOSKELETAL: No cyanosis or edema. No calf tenderness. NEURO/PSYCH: Afocal. Awake, alert, and oriented x3. Normal speech and judgement. (Ryan Bauman MD R2) A/P Assessment and Plan Patient is a 72 year old female admitted for near syncope. Discharge Planning Discharge home pending clearance from cardiology, Dr. Turner to evaluate today Home with NO PT or OT (Ryan Bauman MD R2) Attending Attestation Patient examined independently and case discussed with resident physician I have read the above note and agree with the assessment/plan as discussed with me I was involved in all medical decision making for this patient Jp Mayberry MD (Jp Mayberry MD) Problem List: (1) CHF exacerbation ICD Codes: I50.9 - Heart failure, unspecified Status: Chronic Plan: -Repeat chest x-ray 03/08 shows cardiomegaly with radiographic features of CHF and pulmonary edema compared to chest x-ray on admission which only showed cardiomegaly -Repeat troponin less than 0.02 -BNP trended: 1177, 2365, 2057, 2668, 2471 -2D echo on 03/07/2018 shows moderately dilated left ventricle with global left ventricular dysfunction. Left atrial size is moderate to severely dilated. Severely reduced ventricular systolic function with an estimated EF of 20-25%. Severe mitral valve regurgitation and moderate to severe tricuspid valve regurgitation -[employer] is Dr. Turner, to evaluate today for possible discharge * Continue Entresto at lowest dose 24-26 milligrams p.o. twice daily * Continue Lasix to 40 mg p.o. daily -Supplemental 02 as needed -Strict Is and Os -Fluid restrict to 1800 ml per 24 hours -Continuous cardiac telemetry -Vitals every 4 hours -Out of bed with assistance -Fall precautions (2) New onset a-fib ICD Codes: I48.91 - Unspecified atrial fibrillation Status: Resolved Plan: -Continue Metoprolol 50 mg PO BID -Continue Eliquis 5mg PO BID (3) Near syncope ICD Codes: R55 - Syncope and collapse Status: Resolved Plan: -Carotid ultrasound shows 50-69% stenosis of both internal carotid arteries -2D echo on 03/07/2018 shows moderately dilated left ventricle with global left ventricular dysfunction. Left atrial size is moderate to severely dilated. Severely reduced ventricular systolic function with an estimated EF of 20-25%. Severe mitral valve regurgitation and moderate to severe tricuspid valve regurgitation -Cardiology on board -See plan above (4) Aortic valve replaced ICD Codes: Z95.2 - Presence of prosthetic heart valve Status: Chronic Plan: -History of aortic valve replacement 2 -Continue metoprolol 50 mg p.o. twice daily (5) HTN (hypertension) ICD Codes: I10 - HTN (hypertension) Status: Chronic Plan: Stable -On metoprolol 50 mg p.o. twice daily (6) COPD (chronic obstructive pulmonary disease) ICD Codes: J44.9 - COPD (chronic obstructive pulmonary disease) Status: Chronic Plan: -Stable, no shortness of breath on room air -Continue Ellipta inhaler -Continue Albuterol 8.5gm inhaler -Duonebs prn (7) History of DVT (deep vein thrombosis) ICD Codes: Z86.718 - Personal history of other venous thrombosis and embolism Status: Chronic Plan: On Eliquis Bilateral SCDs (8) Constipation ICD Codes: K59.00 - Constipation, unspecified Status: Chronic Plan: Patient reports chronic problem with constipation; last BM 03/08/18 Continue Sasha-Colace twice daily Monitor I's and Os (9) CKD (chronic kidney disease) ICD Codes: N18.9 - Chronic kidney disease, unspecified Status: Chronic Plan: Creatinine 1.20 on admission, improved to 0.96 today CKD stage III per chart review Avoid nephrotoxic agents (10) Fibromyalgia ICD Codes: M79.7 - Fibromyalgia Status: Chronic Plan: Stable, takes Extra strength Tylenol at home -[place] discontinued for discharge (11) FEN Status: Acute Plan: Fluids: Oral fluids, strict Is and Os Electrolytes: Will monitor and replace as needed Nutrition: Heart healthy diet, mechanical soft solids, thin liquids, ensure with all meals (Ryan Bauman MD R2) Problem Qualifiers (1) CHF exacerbation: Qualified Codes: I50.23 - Acute on chronic systolic (congestive) heart failure (2) CKD (chronic kidney disease): Qualified Codes: N18.3 - Chronic kidney disease, stage 3 (moderate) Ryan Bauman MD R2 Mar 10, 2018 10:16 Jp Mayberry MD Mar 10, 2018 14:49
--- NOTE | 2018-03-10 14:38 | PD.CARD.PN ---
Subjective Subjective Remarks Pt lying in bed, in no acute distress. She denies any chest pain, dizziness, or increased SOB. She is tolerating Entresto. BP is low, she remains asymptomatic. No signs of fluid overload on exam. Only complaint is thrush and painful tongue. (Shadeed,Marissa Sanarina CHOI) Objective Medications Current Medications Medications (Trade) Dose Ordered Sig/Sy Route Start Time Stop Time Status Last Admin (Proair Hfa Inh) 2 puff Q6H PRN INH 03/06/18 12:15 (Pravachol) 40 mg HS PO 03/06/18 21:00 03/09/18 20:59 Patient Own Medication PT OWN MED: JENNIFER... DAILY INH 03/07/18 09:00 Future Hold (Sasha-Colace) 1 tab BID PO 03/06/18 12:30 03/10/18 09:03 (Milk Of Magnesia Liq) 30 ml Q12H PRN PO 03/06/18 12:30 (Senokot) 17.2 mg Q12H PRN PO 03/06/18 12:30 (Dulcolax Supp) 10 mg DAILY PRN RECTAL 03/06/18 12:30 (Lactulose Liq) 30 ml DAILY PRN PO 03/06/18 12:30 (NS Flush) 2 ml UNSCH PRN IV FLUSH 03/06/18 13:00 (NS Flush) 2 ml BID IV FLUSH 03/06/18 21:00 03/10/18 09:02 (Magic Mouthwash Adult Liq) 10 ml QID SWISH-SWAL 03/06/18 18:00 03/10/18 13:01 (Restoril) 15 mg HS PRN PO 03/06/18 21:00 (Narcan Inj) 0.4 mg UNSCH PRN IV PUSH 03/06/18 14:30 (Zofran Odt) 4 mg Q6H PRN PO 03/06/18 14:30 (Tylenol) 650 mg Q4H PRN PO 03/06/18 23:45 03/10/18 07:34 (Eliquis) 5 mg BID PO 03/07/18 21:00 03/10/18 09:02 (Diflucan) 100 mg DAILY PO 03/08/18 09:00 6/4/18 09:02 (Lopressor) 50 mg BID PO 03/07/18 21:00 03/09/18 20:59 (Duoneb Neb) 1 ampule Q6HR NEB PRN NEB 03/08/18 10:15 (Lasix) 40 mg DAILY PO 03/09/18 09:00 03/10/18 09:04 (Entresto 24-26 Mg) 1 tab BID PO 03/08/18 12:00 03/10/18 09:02 Vital Signs / I&O Vital Signs Date Time Temp Pulse Resp B/P (MAP) Pulse Ox O2 Delivery O2 Flow Rate FiO2 03/10/18 12:07 97.9 94 17 99/70 (80) 96 03/10/18 08:07 97.8 83 17 94/77 (83) 98 03/10/18 08:00 92 03/10/18 04:00 76 03/10/18 04:00 Room Air 03/10/18 04:00 98.1 83 18 92/58 (69) 97 03/10/18 00:00 98.4 93 18 103/60 (74) 97 03/10/18 00:00 93 03/10/18 00:00 Room Air 03/09/18 20:00 92 03/09/18 20:00 Room Air 03/09/18 20:00 98.0 95 18 123/56 (78) 98 03/09/18 16:00 98.0 87 16 98/83 (88) 95 03/09/18 16:00 92 I/O 03/09/18 03/09/18 03/09/18 03/10/18 03/10/18 03/10/18 07:00 15:00 23:00 07:00 15:00 23:00 Intake Total 240 ml 480 ml 237 ml Output Total 900 ml 100 ml Balance -660 ml 480 ml 137 ml Intake Oral 240 ml 480 ml 237 ml Output Urine Total 900 ml 100 ml # Voids 4 1 # Bowel Movements 0 0 Physical Exam GENERAL: elderly, black female, in no acute distress SKIN: Warm and dry. HEAD: Atraumatic. Normocephalic. EYES: . No injection or drainage. ENT: No nasal bleeding or discharge. Mucous membranes pink and moist. NECK: Trachea midline. No JVD. CARDIOVASCULAR: Irregular RESPIRATORY: diminished in the bases GASTROINTESTINAL: Abdomen soft, non-tender, nondistended. Hepatic and splenic margins not palpable. MUSCULOSKELETAL: Extremities without clubbing, cyanosis, or edema. No obvious deformities. NEUROLOGICAL: Awake and alert. No obvious cranial nerve deficits. Motor grossly within normal limits. Five out of 5 muscle strength in the arms and legs. Normal speech. PSYCHIATRIC: Appropriate mood and affect; insight and judgment normal. Laboratory Laboratory Tests Test 03/10/18 05:54 White Blood Count 4.8 TH/MM3 Red Blood Count 4.94 MIL/MM3 Hemoglobin 15.0 GM/DL Hematocrit 45.2 % Mean Corpuscular Volume 91.5 FL Mean Corpuscular Hemoglobin 30.4 PG Mean Corpuscular Hemoglobin Concent 33.3 % Red Cell Distribution Width 15.6 % Platelet Count 163 TH/MM3 Mean Platelet Volume 9.7 FL Blood Urea Nitrogen 13 MG/DL Creatinine 0.96 MG/DL Random Glucose 88 MG/DL Calcium Level 9.7 MG/DL Sodium Level 140 MEQ/L Potassium Level 4.0 MEQ/L Chloride Level 103 MEQ/L Carbon Dioxide Level 26.5 MEQ/L Anion Gap 11 MEQ/L Estimat Glomerular Filtration Rate 69 ML/MIN B-Type Natriuretic Peptide 2471 PG/ML Imaging Last 72 hours Impressions Chest X-Ray 03/09/18 0600 Signed Impressions: CONCLUSION: Stable appearance of congestive heart failure and pulmonary edema. Chest X-Ray 03/08/18 0000 Signed Impressions: CONCLUSION: Cardiomegaly with radiographic features of congestive heart failure and pulmona ry edema. (Shadeed,Marissa CHOI) Assessment and Plan Problem List: (1) Mitral regurgitation ICD Codes: I34.0 - Nonrheumatic mitral (valve) insufficiency Plan: Recent echo shows severe MR. Will continue to manage medically at this time. (2) Acute systolic CHF (congestive heart failure) ICD Codes: I50.21 - Acute systolic (congestive) heart failure Plan: No signs of fluid overload on exam. BNP elevated. Continue with diuresis. Echo shows EF 20-25%, recently started on Entresto. (3) COPD (chronic obstructive pulmonary disease) ICD Codes: J44.9 - COPD (chronic obstructive pulmonary disease) Status: Chronic Plan: Stable (4) CKD (chronic kidney disease), stage III ICD Codes: N18.3 - CKD (chronic kidney disease), stage III Status: Acute (5) H/O aortic valve replacement ICD Codes: Z95.2 - History of aortic valve replacement Status: Acute (6) Tricuspid insufficiency ICD Codes: I07.1 - Rheumatic tricuspid insufficiency (7) Permanent atrial fibrillation ICD Codes: I48.2 - Chronic atrial fibrillation Plan: Started on Eliquis, denies any issues with bleeding. (8) meterman (current) use of anticoagulants ICD Codes: Z79.01 - meterman (current) use of anticoagulants (9) Dilated cardiomyopathy ICD Codes: I42.0 - Dilated cardiomyopathy Assessment and Plan Dizziness May consider [facility] as outpatient. The patient was seen and evaluated by Dr. Turner who completed face to face encounter and physical exam and particpiated in care, management, and decision making. (Mely,Marissa CHOI) Problem List: (1) Mitral regurgitation ICD Codes: I34.0 - Nonrheumatic mitral (valve) insufficiency Plan: The exam, history, and the medical decision-making described in the above note were completed with the assistance of the mid-level provider. I reviewed and agree with the findings presented. I attest that I had a face-to- face encounter with the patient on the same day, and personally performed and documented my assessment and findings in the medical record.Recent echo shows severe MR. Will continue to manage medically at this time. Will check echo and see a so/p. (2) Acute systolic CHF (congestive heart failure) ICD Codes: I50.21 - Acute systolic (congestive) heart failure Plan: No signs of fluid overload on exam. BNP elevated. Continue with diuresis. Echo shows EF 20-25%, recently started on Entresto. (3) COPD (chronic obstructive pulmonary disease) ICD Codes: J44.9 - COPD (chronic obstructive pulmonary disease) Status: Chronic Plan: Stable (4) CKD (chronic kidney disease), stage III ICD Codes: N18.3 - CKD (chronic kidney disease), stage III Status: Acute (5) H/O aortic valve replacement ICD Codes: Z95.2 - History of aortic valve replacement Status: Acute (6) Tricuspid insufficiency ICD Codes: I07.1 - Rheumatic tricuspid insufficiency (7) Permanent atrial fibrillation ICD Codes: I48.2 - Chronic atrial fibrillation Plan: Started on Eliquis, denies any issues with bleeding. (8) longterm (current) use of anticoagulants ICD Codes: Z79.01 - longterm (current) use of anticoagulants (9) Dilated cardiomyopathy ICD Codes: I42.0 - Dilated cardiomyopathy (Radha Turner MD) [facility] Mar 10, 2018 14:38 Radha Turner MD Mar 10, 2018 14:49
--- NOTE | 2018-03-10 14:53 | HHI.DCPOC ---
Discharge Care Plan Diagnosis: (1) Acute systolic CHF (congestive heart failure) (2) New onset a-fib Goals to Promote Your Health * To prevent worsening of your condition and complications * To maintain your health at the optimal level Directions to Meet Your Goals Take your medications as prescribed Follow your dietary instruction Follow activity as directed Keep your appointments as scheduled Take your immunizations and boosters as scheduled If your symptoms worsen call your PCP, if no PCP go to Urgent Care Center or Emergency Room Smoking is Dangerous to Your Health. Avoid second hand smoke Call the 24-hour hour crisis hotline for domestic abuse at Ryan Bauman MD R2 Mar 10, 2018 14:53
[2018-03-10] MEDS ORDERED: METO25TA3 PO (15:04)
[2018-03-10] MEDS ORDERED: SACU1TAB PO (15:12)
[2018-03-10] MEDS ORDERED: METOPROLOL TARTRATE 50 MG TAB PO SCH (21:00)
== END 2018-03-10 18:01 | disposition home or self-care (01) | DRG 291 ==
LOC: NEPC 09:21 → INTOOBSV 14:41 → NEDA 14:41 → N04A 17:00 → OBSVTOIN 03-08 17:28
PROVIDERS: ADMIT Family Medicine; ATTEND Family Medicine
DX: I13.0 Hypertensive heart and chronic kidney disease with heart failure and stage 1 through stage 4 chronic kidney disease, or unspecified chronic kidney disease (principal); I50.23 Acute on chronic systolic (congestive) heart failure; I47.2 Ventricular tachycardia; I95.9 Hypotension, unspecified; J44.9 Chronic obstructive pulmonary disease, unspecified; I08.1 Rheumatic disorders of both mitral and tricuspid valves; I48.2 Chronic atrial fibrillation; I42.0 Dilated cardiomyopathy; N18.3 Chronic kidney disease, stage 3 (moderate); R13.10 Dysphagia, unspecified; B37.9 Candidiasis, unspecified; R55 Syncope and collapse; I25.10 Atherosclerotic heart disease of native coronary artery without angina pectoris; E03.9 Hypothyroidism, unspecified; E78.00 Pure hypercholesterolemia, unspecified; K14.1 Geographic tongue; M25.512 Pain in left shoulder; R07.9 Chest pain, unspecified; M79.89 Other specified soft tissue disorders; M79.602 Pain in left arm; K59.00 Constipation, unspecified; E78.5 Hyperlipidemia, unspecified; K21.9 Gastro-esophageal reflux disease without esophagitis; M79.7 Fibromyalgia; M19.90 Unspecified osteoarthritis, unspecified site; Z95.3 Presence of xenogenic heart valve; Z80.3 Family history of malignant neoplasm of breast; Z87.891 Personal history of nicotine dependence; Z79.899 Other long term (current) drug therapy; Z86.718 Personal history of other venous thrombosis and embolism; Z86.711 Personal history of pulmonary embolism
CPT/HCPCS: 71045; 71046; 80048; 80053; 80307; 82550; 82607; 82746; 83735; 83880; 84100; 84443; 84484; 85025; 85027; 85610; 87389; 93005; 93306; 93880; 94150; 94618; 96360; G0475; G8987-GO; G8987-GP; G8988-GO; G8988-GP; J1644; J7030

== ENCOUNTER 2018-11-20 14:38 | Inpatient (IN) ==
[2018-11-20] MEDS ORDERED: Morphine Inj 4 MG/ML Vial IV.PUSH ONE (15:09)
[2018-11-20] MEDS ORDERED: Sod Chloride 0.9% Inj 1,000 ML IV.CONT SCH (15:15)
--- NOTE | 2018-11-20 15:18 | ED ---
HPI General Chief complaint: GI Bleed Stated complaint: Pain/Bleeding Time Seen by Provider: 11/20/18 15:09 Source: patient Mode of arrival: ambulatory Limitations: no limitations History of Present Illness HPI Narrative: according to patient pcp is dr Hernández, and aditya is the GI doctor that did a colonoscopy recently and she has been bleeding ever since. patient is on eliquis for afib dx in 2018. patient has h/o htn, hyperchol as well as CKD. patient describes abd discomfort as "menstrual cramps" that come and go" and doesn't seem to go away, rates it a 05/16. MD complaint: Reports blood on toilet paper and gross hematochezia Pain Consistency: constant Severity: moderate Relieving factors: none Exacerbating factors: none Context: Reports anticoagulant use Associated symptoms: Reports abdominal pain Treatments Prior to Arrival: Reports none Related Data Home Medications Medication Instructions Recorded Confirmed albuterol sulfate [ProAir HFA] 2 puff INHALATION Q4-6H PRN 09/21/18 09/21/18 apixaban [Eliquis] 2.5 mg PO BID 09/21/18 09/21/18 furosemide 20 mg PO DAILY 09/21/18 09/21/18 metoprolol tartrate 100 mg PO BID 09/21/18 09/21/18 potassium chloride 10 meq PO DAILY 09/21/18 09/21/18 simvastatin 20 mg PO QPM 09/21/18 09/21/18 Allergies Allergy/AdvReac Type Severity Reaction Status Date / Time nitroglycerin Allergy Severe PT DOESNT Verified 09/21/18 16:19 REMEMBER FRESH FROZEN PLASMA Allergy Severe SWELLING,IT Uncoded 09/21/18 16:19 MIGDALIA Review of Systems ROS: all other systems reviewed are negative [facility] Medical History Medical History DVT (deep venous thrombosis) (Acute) Fibromyalgia (Acute) GI bleed (Acute) Hyperlipemia (Acute) Presence of IVC filter (Acute) Surgical History Surgical History History of discectomy (Acute) History of laminectomy (Acute) Hx of CABG (Acute) Hx of breast biopsy (Acute) Social History Social History Substance History: No History of Abuse Second Hand Smoke Exposure: No Smoking Status: Former smoker How Often Do You Have a Drink Containing Alcohol: Monthly or less Immunization History Tetanus Immunization: Unsure Exam HENMT Head: normocephalic and atraumatic Nose: no nasal discharge and no epistaxis Mouth: moist mucous membranes Eyes Sclera: normal sclerae Pupils: PERRL Neck Neck: trachea midline and no JVD Resp Effort & Inspection: no use of accessory muscles Auscultation: clear to auscultation bilaterally Cardio Rate: regular rate Rhythm: regular rhythm Heart Sounds: no murmurs GI Inspection: non-distended Palpation: soft, no hepatosplenomegaly and tender Auscultation: normal bowel sounds Rectal Exam: visual inspection normal, heme positive stool and No hemorrhoids Skin General: dry skin (warm) Neuro General: alert and awake Cranial Nerves: other Speech: speech normal Motor: no movement abnormalities noted Extrem General: normal to inspection, no clubbing, no cyanosis and no edema Psych Mood: congruent mood Affect: normal affect Judgment: judgment good Course Initial Documented Vital Signs Temperature 97.7 F 11/20/18 14:44 Pulse Rate 105 H 11/20/18 14:44 Respiratory Rate 20 11/20/18 14:44 Blood Pressure 125/75 11/20/18 14:44 Pulse Oximetry 96 11/20/18 14:44 Last Documented Vital Signs Temperature 97.7 F 11/20/18 14:44 Pulse Rate 119 H 11/20/18 14:59 Respiratory Rate 19 11/20/18 14:59 Blood Pressure 209/77 H 11/20/18 14:59 Pulse Oximetry 96 11/20/18 14:59 Medical Decision Making [facility] Narrative Medical decision making narrative: patient was found to have gross blood on rectal exam, and tachycardic in 140's c/w afib rvr Medical Screen Exam Complete: Yes Emergency Medical Condition: Yes Discharge Plan Physicians Team ED Provider: Emanuel Massey Rxs /Orders / Referrals /Forms Prescriptions: No Action potassium chloride 10 mEq Capsule, Extended Release 10 meq PO DAILY RF: 0 metoprolol tartrate 100 mg Tablet 100 mg PO BID RF: 0 simvastatin 20 mg Tablet 20 mg PO QPM RF: 0 furosemide 20 mg Tablet 20 mg PO DAILY RF: 0 albuterol sulfate [ProAir HFA] 90 mcg/actuation Hfa Aerosol Inhaler 2 puff INHALATION Q4-6H PRN (Reason: Shortness Of Breath) RF: 0 apixaban [Eliquis] 2.5 mg Tablet 2.5 mg PO BID RF: 0 Status ED Status: With Doctor
[2018-11-20 15:35] LABS: Baso # (Auto) 0.1 th/mm3 (0.0-0.2); Baso % (Auto) 0.4 % (0.0-2.0); Eos % (Auto) 0.1 % (0.0-4.0); Hematocrit 49.5 % (35.0-46.0); Hemoglobin 16.2 gm/dL (11.6-15.3); Mean Corpuscular HGB Conc 32.6 % (32.0-36.0); Mean Corpuscular Hemoglobin 31.4 pg (27.0-34.0); Mean Corpuscular Volume 96.3 fL (80.0-100.0); Mean Platelet Volume 9.4 fL (7.0-11.0); Mono # (Auto) 1.1 th/mm3 (0.0-0.9); Mono % (Auto) 6.7 % (0.0-8.0); Neut # (Auto) 14.8 th/mm3 (1.8-7.7); Neut % (Auto) 86.8 % (16.0-70.0); Platelet Count 150 th/mm3 (150-450); Red Blood Count 5.14 mil/mm3 (4.00-5.30); Red Cell Distribution Width 17.6 % (11.6-17.2)
[2018-11-20 15:44] LABS: Activated Partial Thrombo Time 30.5 sec (23.4-31.7); INR 1.4 Ratio; Prothrombin Time 14.4 sec (9.8-11.6)
--- NOTE | 2018-11-20 15:49 | CT ---
EXAM DATE: 11/20/2018 3:41 PM EST AGE/SEX: 73 years / Female INDICATIONS: Abdominal pain. Rectal bleeding. Colonoscopy 2 days ago. CLINICAL DATA: This is the patient's initial encounter. Patient reports that signs and symptoms have been present for 2 days and indicates a pain score of 9/10. MEDICAL/SURGICAL HISTORY: Deep venous thrombosis. Fibromyalgia. CABG. Discectomy. Laminectomy RADIATION DOSE: 6.76 CTDI (mGy) COMPARISON: POI, CT ABDOMEN AND PELVIS W/ CONTRAST, 10/27/2018. . TECHNIQUE: Multiple contiguous axial images were obtained through the abdomen. Images were obtained using multiple row detector helical technique. Using automated exposure control and adjustment of the mA and/or kV according to patient size, radiation dose was kept as low as reasonably achievable to o btain optimal diagnostic quality images. DICOM format image data is available electronically for rev iew and comparison. FINDINGS: Lower Lungs: Moderate cardiomegaly without pericardial effusion. Ligated subxiphoid pacer leads noted . Small right and tiny left pleural effusion with associated passive atelectasis. The right effusion is larger from the prior study while the left is new.. Liver: The liver has a homogeneous density without space-occupying lesion. There is no dilation of th e biliary tree. Spleen: Homogeneous density without enlargement. Pancreas: Unremarkable without mass or calcification. Kidneys: Normal in size and shape. No evidence of mass or hydronephrosis. Adrenal Glands: Unremarkable. Aorta: Scattered calcified atheromatous plaque without aneurysmal dilation. Bowel/Mesentery: There is circumferential wall thickening involving the colon. This extends from the splenic flexure to the distal sigmoid colon. There is a moderate amount of ascitic fluid seen throug hout the abdomen and tracking down the paracolic gutters. This is all new from the prior examination. Fluid-filled loops of nondilated small bowel are noted. The colon proximal to the splenic flexure is gas filled and at the top normal range for size. Appendix is normal by CT criteria. No free air. Abdominal Wall: Intact. Retroperitoneum: No evidence of adenopathy in the retrocrural, para-aortic, or deep pelvic regions. Bladder: Contours are smooth. Reproductive Organs: No abnormal masses or calcifications seen. Inguinal: The inguinal region is unremarkable without evidence of adenopathy. Bony Structures: A degenerative spine.. A TrapEase IVC filter within the infrarenal IVC. CONCLUSION: 1. Acute inflammatory process involving the descending colon extending from the splenic flexure to t he distal sigmoid. 2. Moderate amount of ascites. 3. Bilateral pleural effusions. The right is larger than left. 4. No free air. Electronically signed by: Uriah Landaverde MD Board Certified Radiologist 11/20/2018 3:48 PM EST
[2018-11-20 16:08] LABS: Alkaline Phosphatase 106 U/L (45-117); Total Protein 6.7 g/dL (6.4-8.2)
[2018-11-20] MEDS ORDERED: Levofloxacin 500 mg Premix Inj 500 MG/100 ML PIGGYBACK IV.SIG ONE (16:11)
[2018-11-20 16:20] LABS: Alanine Aminotransferase 19 U/L (10-53); Albumin 3.1 g/dL (3.4-5.0); Anion Gap 9 meq/L (5-15); Aspartate Aminotransferase 36 U/L (15-37); Blood Urea Nitrogen 18 mg/dL (7-18); Calcium 9.2 mg/dL (8.5-10.1); Carbon Dioxide 28.3 meq/L (21.0-32.0); Chloride 107 meq/L (98-107); Glomerular Filtration Rate 51 mL/min (>89); Glucose,Random 99 mg/dL (74-106); Lipase 50 U/L (73-393); Sodium 144 meq/L (136-145)
--- NOTE | 2018-11-20 18:34 | P.HPIM ---
History of Present Illness Primary Care Physician: Neri Hernández MD History of Present Illness: 73-year-old black female being admitted for GI bleed and abdominal pain. Patient was in her usual state of health until 2 days ago she had a colonoscopy done, the results of which she does not know. Says that since going home after the procedure she has had bloody bowel movements on a daily basis with abdominal pain. Says that the pain partially responded some Tylenol. Denies taking any NSAIDs. Otherwise pain can get worse with different positioning. Denies any nausea vomiting. Has noted blood in the stool as well as blood on wiping. Denies any dysuria. Denies any fevers or chills. Says she did not restart any of her home medications after the procedure because she was worried about her condition. She decided to come to the ED today, dropped off by a friend. In the ED she had stable vital signs except for highly elevated blood pressure at one point and a pulse of 119. CT scan was done which showed colitis in the descending colon as well as the splenic flexure. Hemoglobin is about 16, creatinine is slightly elevated above 1. Patient was given cardizem x 1 , as well as levaquin and flagyl. Inpatient Certification Inpatient Certification: I certify that the inpatient services were ordered in accordance with Medicare regulations governing the order. This includes certification that hospital inpatient services are reasonable and necessary and in the case of services not specified as inpatient-only under 42 CFR 419.22(n), that they are appropriately provided as inpatient services in accordance to with the 2-midnight benchmark under 43 CFR 412.3(e) Estimated Total Length of Stay (Days): 2 Plans for Post Hospital Care: Not yet determined Review of Systems Review of Systems: all other systems reviewed are negative [facility] Medical History Medical History DVT (deep venous thrombosis) (Acute) Fibromyalgia (Acute) GI bleed (Acute) Hyperlipemia (Acute) Presence of IVC filter (Acute) Surgical History Surgical History Hx of CABG (Acute) History of discectomy (Acute) History of laminectomy (Acute) Hx of breast biopsy (Acute) Social History Social History Substance History: No History of Abuse Second Hand Smoke Exposure: No Smoking Status: Former smoker How Often Do You Have a Drink Containing Alcohol: 2 to 4 times a month Recent Travel in [facility] within the Last 8 Weeks: No Recent Out of Country Travel within the Last 8 Weeks: No Immunization History Tetanus Immunization: Unsure Medications and Allergies Allergies Allergy/AdvReac Type Severity Reaction Status Date / Time nitroglycerin Allergy Severe PT DOESNT Verified 09/21/18 16:19 REMEMBER FRESH FROZEN PLASMA Allergy Severe SWELLING,IT Uncoded 09/21/18 16:19 MIGDALIA Home Medications Medication Instructions Recorded Confirmed Type albuterol sulfate [ProAir HFA] 2 puff INHALATION Q4-6H PRN 09/21/18 11/20/18 History apixaban [Eliquis] 2.5 mg PO BID 09/21/18 11/20/18 History furosemide 20 mg PO DAILY 09/21/18 11/20/18 History metoprolol tartrate 100 mg PO BID 09/21/18 11/20/18 History potassium chloride 10 meq PO DAILY 09/21/18 11/20/18 History simvastatin 20 mg PO QPM 09/21/18 11/20/18 History Active Medications: Active Medications Sodium Chloride (Ns Inj) 1,000 mls @ 125 mls/hr IV.CONT .Q8H [facility] Stop: 11/20/18 23:14 Last Admin: 11/20/18 15:27 Dose: 125 mls/hr Sodium Chloride (Ns Flush) 2 ml IV.FLUSH BID [facility] Sodium Chloride (Ns Flush) 2 ml IV.FLUSH PRN PRN PRN Reason: FLUSH AFTER USING IV ACCESS Physical Exam Vital signs: Vital Signs 11/20/18 14:44 11/20/18 14:59 Temperature 97.7 F Pulse Rate 105 H 119 H Respiratory Rate 20 19 Blood Pressure 125/75 209/77 H Pulse Oximetry 96 96 Intake & Output 11/19/18 11/20/18 11/20/18 18:59 06:59 18:59 Intake Total 100 / 100 Balance 100 / 100 Weight 58.967 kg Intake: IV 100 / 100 Flagyl 500 MG Inj 100 ML @ 100 100 / 100 mls/hr IV.SIG ONCE ONE Rx#: [id number] Narrative: VS: afebrile GENERAL: Elderly white female, well-nourished for her age, no acute distress SKIN: Warm and dry. EYES: No scleral icterus. No injection or drainage. ENT: No nasal bleeding or discharge. Mucous membranes pink and moist. CARDIOVASCULAR: Regular rate and rhythm. no murmurs RESPIRATORY: No accessory muscle use. Clear to auscultation. Breath sounds equal bilaterally. GASTROINTESTINAL: Abdomen soft, mild diffuse tenderness, nondistended Extremities: No clubbing, cyanosis, or edema. No obvious deformities. MUSCULOSKELETAL: adequate muscle bulk and tone for age and habitus NEUROLOGICAL: Awake and alert. No obvious cranial nerve deficits. No facial droop nor slurred speech noted. PSYCHIATRIC: Appropriate mood and affect; insight and judgment normal. Results Labs CBC & Chem 7: 11/22/18 09:39 11/22/18 09:39 Imaging Impressions Abdomen/Pelvis CT 11/20/18 15:09 CONCLUSION: 1. Acute inflammatory process involving the descending colon extending from the splenic flexure to the distal sigmoid. 2. Moderate amount of ascites. 3. Bilateral pleural effusions. The right is larger than left. 4. No free air. Caprini VTE Risk Assessment Caprini VTE Risk Assessment: Moderate/High Risk (score >= 2) VTE Pharmacological Exception Reason: Active bleeding Caprini Risk Assessment Model: Point Value = 1 Point Value = 2 Point Value = 3 Point Value = 5 Age 41-60 Minor surgery BMI > 25 kg/m2 Swollen legs Varicose veins or History of unexplained or recurrent spontaneous Oral contraceptives or hormone replacement Sepsis (< 1 month) Serious lung disease, including pneumonia (< 1 month) Abnormal pulmonary function Acute myocardial infarction Congestive heart failure (< 1 month) History of inflammatory bowel disease Medical patient at bed rest Age 61-74 Arthroscopic surgery Major open surgery (> 45 min) Laparoscopic surgery (> 45 min) Malignancy Confined to bed (> 72 hours) Immobilizing plaster cast Central venous access Age >= 75 History of VTE Family history of VTE Factor V Leiden Prothrombin [id number] Lupus anticoagulant Anticardiolipin antibodies Elevated serum homocysteine Heparin-induced thrombocytopenia Other congenital or acquired thrombophilia Stroke (< 1 month) Elective arthroplasty Hip, pelvis, or leg fracture Acute spinal cord injury (< 1 month) Prophylaxis Regimen: Total Risk Factor Score Risk Level Prophylaxis Regimen 0-1 Low Early ambulation 2 Moderate Order ONE of the following: *Sequential Compression Device (SCD) *Heparin 5000 units SQ BID 3-4 Higher Order ONE of the following medications: *Heparin 5000 units SQ TID *Enoxaparin/Lovenox 40 mg SQ daily (WT < 150 kg, CrCl > 30 mL/min) *Enoxaparin/Lovenox 30 mg SQ daily (WT < 150 kg, CrCl > 10-29 mL/min) *Enoxaparin/Lovenox 30 mg SQ BID (WT < 150 kg, CrCl > 30 mL/min) AND/OR *Sequential Compression Device (SCD) 5 or more Highest Order ONE of the following medications: *Heparin 5000 units SQ TID (Preferred with Epidurals) *Enoxaparin/Lovenox 40 mg SQ daily (WT < 150 kg, CrCl > 30 mL/min) *Enoxaparin/Lovenox 30 mg SQ daily (WT < 150 kg, CrCl > 10-29 mL/min) *Enoxaparin/Lovenox 30 mg SQ BID (WT < 150 kg, CrCl > 30 mL/min) AND *Sequential Compression Device (SCD) Assessment and Plan Plan 73 y/o BF admitted for abd pain and GI bleed for 2 days. hemodynamically stable upon admissino. Prior hx of GI bleed. Has IVC filter with hx of DVT. abd pain -lab work unrevealing, likely 2/[address] post colonoscopy -pain control colitis - post-procedure, cover w/ abx for now -consulting GI - IVFs hematochezia - likely 2/2 above, consulting GI - protonix iv for now to cover for possible upper source afib mild RVR -s/p cardizem -start home lopressor back again -hold home eliquis in light of bleed for now chronic sCHF CAD -home kcl, statin, and furosemide hx of DVT with hx of GI bleed -IVC filter placement SCDs given bleeding
[2018-11-20] MEDS: Pantoprazole Inj 40 MG Vial IV.PUSH SCH (22:04)
[2018-11-20] MEDS: Sodium Chlor 0.9% Inj 500 ML IV.CONT SCH (22:04)
[2018-11-20] MEDS: Metoprolol Tartrate 100 MG Tablet PO SCH (22:05)
[2018-11-21] MEDS: Morphine Sulfate Inj 2 MG/ML Vial IV.PUSH PRN ×2 (02:57→06:03)
--- NOTE | 2018-11-21 08:45 | MB ---
cc: Luis Fernando Koch MD DATE: 11/21/2018 REASON FOR CONSULTATION: GI bleed. HISTORY OF PRESENT ILLNESS: This is a very pleasant 73-year-old -N[place]alese female known to Dr. Bella from the office and recent procedures. She was seen initially in the office for nonspecific symptoms including a decreased appetite, 30-pound weight loss. She underwent a CT scan as outpatient and was found to have bilateral pleural effusion, diverticulosis in the colon, possible under distention versus thickening of the cecum and ascending colon. Due to this, she was recommended to undergo an EGD and a colonoscopy. On 11/18/2018, she underwent an upper endoscopy, which was negative for any acute pathology. No biopsies were done. Colonoscopy was done at the same time showing moderate diverticulosis in the sigmoid and descending colon, otherwise no further pathology was noted in the remainder of the colon. No clear evidence of thickening was noted on the right side of the colon. No biopsies were performed at that time. She had an uneventful procedure and was discharged with outpatient followup in 2 weeks to continue workup for the weight loss. She went home; and she states that while she was home, she continued to have her abdominal discomfort and had noticed several bouts of bloody bowel movements. She took some Tylenol for the pain; but due to worsening of the symptoms, she decided to come to the hospital. She denied any nausea or vomiting. No fevers or chills. Due to the pain, she was also again unable to continue eating. In the ER, she underwent further workup including lab work. Was found to have leukocytosis of 17,000, hemoglobin of 16.2. A CT scan of the abdomen and pelvis was also performed showing acute inflammatory process involving the descending colon extending from the splenic flexure to the distal sigmoid; bilateral pleural effusion, right more than left, was noted as well as moderate ascites was again identified. GI was consulted for further help with the workup and management. PAST MEDICAL HISTORY: Coronary artery disease, distant history of DVT, fibromyalgia, dyslipidemia. PAST SURGICAL HISTORY: Coronary artery bypass graft x 2, discectomy, laminectomy, history of breast biopsy, history of IVC filter placement. FAMILY HISTORY: Denies any GI malignancy. SOCIAL HISTORY: Distant history of tobacco use. Denies regular alcohol use, although does drink alcohol only on a social basis. ALLERGIES: NITROGLYCERIN AND FRESH FROZEN PLASMA. HOME MEDICATIONS: Include albuterol, Eliquis, furosemide, metoprolol, and simvastatin. REVIEW OF SYSTEMS: A 12-point review of system was obtained by me and showed to be negative or noncontributory except for the above-mentioned in the HPI. PHYSICAL EXAMINATION: VITAL SIGNS: Temperature 97.9, heart rate of 92, respirations 18, blood pressure 101/63, O2 saturation 97% on 1 liter. GENERAL: Alert, oriented. No acute distress. HEENT: Pupils equal, round, reactive to light. Extraocular movements are intact. Mucous membranes are moist and pink, atraumatic. CARDIOVASCULAR: Regular rate and rhythm. NECK: Supple. No carotid bruits noted. No thyromegaly appreciated. No lymphadenopathy noted. RESPIRATORY: Clear to auscultation in the upper lobes. Decreased breath sounds and dullness to percussion on the bilateral bases. Mild wheezing noted. ABDOMEN: Soft, nondistended. Minimal tenderness to palpation on the suprapubic region in the left and right quadrants. Mild rebound appreciated. Bowel sounds are present in all 4 quadrants. No periumbilical ecchymosis. GENITOURINARY: No CV angle tenderness appreciated. MUSCULOSKELETAL: Equal strength in upper and lower extremities. Equal pulses. NEUROLOGIC: Alert and oriented. No focal deficit. Cranial nerves 2-12 grossly intact. PSYCHIATRIC: Appropriate mood and affect. DIAGNOSTIC DATA: LABS: WBC 17.0, hemoglobin 16.2, MCV 96, platelet count of 150. Coags: PT 14.4, INR 1.4. Sodium 144, potassium 4.0, chloride 107, bicarbonate 28, BUN 18, creatinine 1.25, total bilirubin 3.7, AST 36, ALT 19, lipase 50, albumin was 3.1. CT scan as described above. IMPRESSION: 1. Lower abdominal pain, status post CT scan showing thickening in the splenic flexure, descending, and sigmoid colon. Possibility of ischemic colitis versus diverticulitis. 2. Abdominal pain secondary to above. 3. Moderate ascites, etiology unclear. A CT scan performed outpatient earlier on 10/27 also showed evidence of fluid of unclear etiology. 4. A 30+ pound weight loss. 5. Bilateral pleural effusion. 6. Leukocytosis. RECOMMENDATIONS: 1. I agree with continuing antibiotics, Levaquin and Flagyl empirically for ischemic colitis versus diverticulitis. 2. Continue to monitor bowel movements for color frequency of stool. 3. Monitor hemoglobin periodically. 4. Recommend interventional radiology consultation and with ultrasound-guided paracentesis for diagnostic and therapeutic reasons. Send ascites fluid for analysis including cytology, Gram stain, cell count, total protein, albumin, and cultures and sensitivity. 5. Could also consider ultrasound-guided thoracentesis to drain the pleural effusion for symptomatic improvement as well as diagnostic reasons. 6. This is a patient who had an essentially benign workup for weight loss with an EGD and a colonoscopy. Abnormal findings include bilateral pleural effusion and ascitic fluid, which certainly raises the possibility of an occult malignant process. 7. At this time, no urgent need for endoscopic procedures. 8. Can initiate food, including starting with a clear liquid diet and slowly advancing as tolerated. Thank you for allowing me to participate in the care of this patient. We will follow along with you and make recommendation as per the patient's clinical course. MD HOWARD Mahajan/sheila , 08:10 AM , 08:25 AM
[2018-11-21] MEDS: Potassium Chloride 10 MEQ ER Capsule PO SCH (08:49)
[2018-11-21] MEDS: Metoprolol Tartrate 100 MG Tablet PO SCH (08:49)
[2018-11-21] MEDS: Pantoprazole Inj 40 MG Vial IV.PUSH SCH ×2 (08:50→20:39)
[2018-11-21] MEDS: Furosemide 20 MG Tablet PO SCH (08:55)
--- NOTE | 2018-11-21 11:24 | P.PNIM ---
Subjective Interval history: Patient reports she is feeling better today. She is having less abdominal pain. No nausea or vomiting. Feels hungry. No further episodes of bloody stool. Physical Exam Vital signs: Vital Signs 11/20/18 14:44 11/20/18 14:59 11/20/18 18:58 Temperature 97.7 F Pulse Rate 105 H 119 H 119 H Respiratory Rate 19 Blood Pressure 125/75 209/77 H 106/83 Pulse Oximetry 96 96 97 11/20/18 19:06 11/20/18 20:55 11/21/18 01:18 Temperature 97.4 F L 97.8 F Pulse Rate 110 H 85 Respiratory Rate 18 18 Blood Pressure 124/75 103/72 Pulse Oximetry 98 96 98 11/21/18 05:51 11/21/18 08:00 Temperature 97.9 F 97.8 F Pulse Rate 92 H 91 H Respiratory Rate 18 18 Blood Pressure 101/63 97/56 L Pulse Oximetry 97 95 Intake & Output 11/20/18 11/21/18 11/21/18 18:59 06:59 18:59 Intake Total 200 / 200 1100 / 1100 Output Total 400 / 400 Balance 200 / 200 700 / 700 Weight 58.967 kg 56.2 kg Intake: IV 200 / 200 1100 / 1100 NS Inj 1,000 ML @ 125 mls/hr IV 1000 / 1000 .CONT .Q8H [facility] Rx#:[id number] Levaquin 500 mg Premix Inj 500 100 / 100 mg In 100 ml @ 100 mls/hr IV. SIG ONCE ONE Rx#:[id number] Flagyl 500 MG Inj 100 ML @ 100 100 / 100 100 / 100 mls/hr IV.SIG Q8H [facility] Rx#: [id number] Output: Urine 400 / 400 Other: # Voids 1 Date of Last Bowel Movement 11/20/18 Weight On Admission 55.8 kg Narrative: GENERAL: This is a well-nourished, well-developed patient, in no apparent distress.\ ENT: Thrush, oral mucosa/tongue CARDIOVASCULAR: Normal rate and regular rhythm without murmurs, gallops, or rubs. RESPIRATORY: Good respiratory efforts. Breath sounds equal and clear to auscultation bilaterally. GASTROINTESTINAL: Abdomen soft, non-distended. Mild diffuse tenderness to palpation over the left quadrant. Normal active bowel sounds MUSCULOSKELETAL: Extremities without cyanosis, or edema. NEURO: Alert & Oriented x4 to person, place, time, situation. Moves all ext x4 PSYCH: Appropriate mood and affect. Results Labs CBC & Chem 7: 11/20/18 15:22 11/20/18 15:22 Imaging Imaging: Impressions Abdomen/Pelvis CT 11/20/18 15:09 CONCLUSION: 1. Acute inflammatory process involving the descending colon extending from the splenic flexure to the distal sigmoid. 2. Moderate amount of ascites. 3. Bilateral pleural effusions. The right is larger than left. 4. No free air. Assessment and Plan Plan 73 y/o BF admitted for abd pain and possible GI bleed for [address] consistent with acute colitis. The patient had a colonoscopy a few days ago which revealed diverticulosis. Acute colitis: Status recent colonoscopy with revealed diverticulosis - Continue antibiotics with Levaquin and Flagyl. - Appreciate GI following - Advance diet as tolerated. Ascites: - Etiology on known. - Patient will have paracentesis today. Fluid studies pending GI bleeding: - Postprocedure -No further evidence of active bleeding. Probably related to colitis. - Continue to monitor H&H. Afib with RVR: Resolved. Rate is now controlled -s/p cardizem -Continue home Lopressor back again -hold home eliquis in light of bleed for now. Plan to resume in the next couple of days. Pleural effusion on abdominal CT: - Respiratory status is stable at this time. She is on room air. - We will hold off on thoracentesis. Follow-up fluid studies from paracentesis. chronic sCHF CAD -home kcl, statin, and furosemide hx of DVT with hx of GI bleed -IVC filter placement SCDs given bleeding Progress Note: Quality VTE Deep Vein Thrombosis/Pulmonary Embolism Present on Admission: No
[2018-11-21] MEDS: Sodium Chlor 0.9% Inj 500 ML IV.CONT SCH (16:31)
--- NOTE | 2018-11-21 16:43 | US ---
EXAM DATE: 11/21/2018 2:42 PM EST AGE/SEX: 73 years / Female INDICATIONS: Ascites, evaluate for paracentesis. CLINICAL DATA: This is the patient's initial encounter. Patient reports that signs and symptoms have been present for 1 day and indicates a pain score of 0/10. MEDICAL/SURGICAL HISTORY: Deep venous thrombosis. GI bleed. . IVC filter. Laminectomy. Breast biopsy. CABG. COMPARISON: [facility] [place], US ABDOMEN - GALLBLADDER, 10/13/2011. [facility] [place], CT ABDOMEN & PELVIS W/O CONTRAST, 11/07. . FINDINGS: Masses: None Fluid Collections: Small amount of ascites predominantly identified midline. Insufficient volume for safe percutaneous drainage Other: None. CONCLUSION: Small amount of peritoneal ascites. Insufficient volume for percutaneous drainage. Electronically signed by: Brandin Hussein MD Board Certified Radiologist 11/21/2018 4:42 PM EST
[2018-11-21] MEDS: Metoprolol Tartrate 25 MG Tablet PO SCH (20:39)
[2018-11-21] MEDS: Acetaminophen 325 MG Tablet PO PRN (22:08)
[2018-11-22] MEDS: Morphine Sulfate Inj 2 MG/ML Vial IV.PUSH PRN (02:22)
[2018-11-22] MEDS: Furosemide 20 MG Tablet PO SCH (10:29)
[2018-11-22] MEDS: Potassium Chloride 10 MEQ ER Capsule PO SCH (10:30)
[2018-11-22] MEDS: Metoprolol Tartrate 25 MG Tablet PO SCH (10:30)
[2018-11-22] MEDS: Pantoprazole Inj 40 MG Vial IV.PUSH SCH (10:30)
[2018-11-22 10:36] LABS: Hematocrit 47.1 % (35.0-46.0); Hemoglobin 15.6 gm/dL (11.6-15.3); Mean Corpuscular HGB Conc 33.2 % (32.0-36.0); Mean Corpuscular Hemoglobin 32.2 pg (27.0-34.0); Mean Platelet Volume 8.9 fL (7.0-11.0); Platelet Count 158 th/mm3 (150-450); Red Blood Count 4.86 mil/mm3 (4.00-5.30); Red Cell Distribution Width 17.1 % (11.6-17.2); White Blood Count 8.3 th/mm3 (4.0-11.0)
[2018-11-22 10:57] LABS: Calcium 9.1 mg/dL (8.5-10.1); Potassium 3.7 meq/L (3.5-5.1)
--- NOTE | 2018-11-22 11:36 | P.PNGI ---
Subjective Interval history: Alert NAD feeling better overall VSS Paracentesis not done due to insufficient fluid Physical Exam Vital signs: Vital Signs 11/21/18 12:00 11/21/18 16:00 11/21/18 20:00 Temperature 97.9 F 97.2 F L 98.3 F Pulse Rate 96 H 86 100 H Respiratory Rate 18 18 18 Blood Pressure 109/64 107/72 97/66 L Pulse Oximetry 93 L 94 L 97 11/22/18 00:00 11/22/18 04:00 11/22/18 08:00 Temperature 98.3 F 97.6 F 98.2 F Pulse Rate 95 H 101 H 124 H Respiratory Rate 17 17 18 Blood Pressure 91/63 L 101/67 103/73 Pulse Oximetry 95 95 97 Intake & Output 11/21/18 11/22/18 11/22/18 18:59 06:59 18:59 Intake Total 1330 / 1330 340 / 340 100 / 100 Balance 1330 / 1330 340 / 340 100 / 100 Weight 55.9 kg Intake: IV 850 / 850 100 / 100 100 / 100 NS Inj 500 ML @ 30 mls/hr IV. 500 / 500 CONT .[id number] [facility] Rx#:[id number] Levaquin 750 mg Premix Inj 150 150 / 150 ML @ 100 mls/hr IV.SIG Q24H [facility] Rx#:[id number] Flagyl 500 MG Inj 100 ML @ 100 200 / 200 100 / 100 100 / 100 mls/hr IV.SIG Q8H [facility] Rx#: [id number] Oral 480 / 480 240 / 240 Other: # Voids 3 2 # Bowel Movements 1 3 - Routine Abdominal Exam Present: soft, normoactive bowel sounds Comments: nontender Results - Labs CBC & Chem 7: 11/22/18 09:39 11/22/18 09:39 Laboratory Results - last 24 hr 11/22/18 11/22/18 09:39 09:39 WBC 8.3 RBC 4.86 Hgb 15.6 H Hct 47.1 H MCV 97.0 MCH 32.2 MCHC 33.2 RDW 17.1 Plt Count 158 MPV 8.9 Sodium 142 Potassium 3.7 Chloride 107 Carbon Dioxide 25.0 Anion Gap 10 BUN 28 H Creatinine 1.43 H Estimated GFR 44 L Random Glucose 101 Calcium 9.1 - Imaging Impressions Abdomen Ultrasound 11/21/18 00:00 CONCLUSION: Small amount of peritoneal ascites. Insufficient volume for percutaneous drainage. Assessment and Plan - Plan Appears stable continue present therapy and IV ABs ? mild ischemic colitis cont IV hydration as well Will follow
[2018-11-22] MEDS ORDERED: Metoprolol Tartrate 25 MG Tablet PO ONE (13:05)
[2018-11-22] MEDS ORDERED: Metoprolol Tartrate 50 MG Tablet PO ONE (13:05)
--- NOTE | 2018-11-22 15:05 | P.PNIM ---
Subjective Interval history: Patient reports continued loose bloody stools. Reports mild abdominal discomfort. No nausea tolerating diet. No complaint of chest pain shortness or palpitations. Physical Exam Vital signs: Vital Signs 11/21/18 16:00 11/21/18 20:00 11/22/18 00:00 Temperature 97.2 F L 98.3 F 98.3 F Pulse Rate 86 100 H 95 H Respiratory Rate 18 18 17 Blood Pressure 107/72 97/66 L 91/63 L Pulse Oximetry 94 L 97 95 11/22/18 04:00 11/22/18 08:00 11/22/18 12:00 Temperature 97.6 F 98.2 F 97.3 F L Pulse Rate 101 H 124 H 108 H Respiratory Rate 17 18 16 Blood Pressure 101/67 103/73 112/68 Pulse Oximetry 95 97 97 Intake & Output 11/21/18 11/22/18 11/22/18 18:59 06:59 18:59 Intake Total 1330 / 1330 340 / 340 100 / 100 Balance 1330 / 1330 340 / 340 100 / 100 Weight 55.9 kg Intake: IV 850 / 850 100 / 100 100 / 100 NS Inj 500 ML @ 30 mls/hr IV. 500 / 500 CONT .[id number] [facility] Rx#:[id number] Levaquin 750 mg Premix Inj 150 150 / 150 ML @ 100 mls/hr IV.SIG Q24H [facility] Rx#:[id number] Flagyl 500 MG Inj 100 ML @ 100 200 / 200 100 / 100 100 / 100 mls/hr IV.SIG Q8H [facility] Rx#: [id number] Oral 480 / 480 240 / 240 Other: # Voids 3 2 # Bowel Movements 1 3 Narrative: GENERAL: This is a well-nourished, well-developed patient, in no apparent distress. CARDIOVASCULAR: Irregular rhythm, tachycardic rate. RESPIRATORY: Good respiratory efforts. Breath sounds equal and clear to auscultation bilaterally. GASTROINTESTINAL: Abdomen soft, non-distended. Mild diffuse tenderness to palpation over the left quadrant with no rebound or guarding. Normal active bowel sounds MUSCULOSKELETAL: Extremities without cyanosis, or edema. NEURO: Alert & Oriented x4 to person, place, time, situation. Moves all ext x4 P Results Labs CBC & Chem 7: 11/22/18 09:39 11/22/18 09:39 Imaging Imaging: Impressions Abdomen Ultrasound 11/21/18 00:00 CONCLUSION: Small amount of peritoneal ascites. Insufficient volume for percutaneous drainage. Assessment and Plan Plan 73 y/o BF admitted for abdominal pain and possible GI bleed for [address] consistent with acute colitis. The patient had a colonoscopy a few days ago which revealed diverticulosis. Acute colitis: Status recent colonoscopy with revealed diverticulosis; rule out ischemic colitis - Continue antibiotics with Levaquin and Flagyl. Continue supportive care and pain control. - Appreciate GI following -Tolerating diet Ascites: - Etiology on known. -Not enough fluid for safe paracentesis procedure for diagnostic analysis GI bleeding: - Postprocedure -Patient states that she is still having bloody stools, will continue to monitor hemoglobin. Hemoglobin today remained stable. Afib with RVR: -s/p cardizem -Continue home Lopressor back again, increase dose from 25 mg to 100 mg p.o. twice daily; verified 100 mg as her home dose through external medication data -hold home eliquis in light of bleed for now. Plan to resume in the next couple of days. Pleural effusion on abdominal CT: - Respiratory status is stable at this time. She is on room air. - We will hold off on thoracentesis. Follow-up fluid studies from paracentesis. chronic sCHF CAD -home kcl, statin, and furosemide hx of DVT with hx of GI bleed -IVC filter placement SCDs given bleeding Anticoagulation on hold due to GI bleed Progress Note: Quality VTE Deep Vein Thrombosis/Pulmonary Embolism Present on Admission: No
[2018-11-22] MEDS ORDERED: Acetaminophen 325 MG Tablet PO PRN (15:08)
[2018-11-22] MEDS ORDERED: Naloxone Inj 0.4 MG/ML Vial IV.PUSH PRN (15:08)
[2018-11-22] MEDS ORDERED: Morphine Sulfate Inj 2 MG/ML Vial IV.PUSH PRN (15:09)
[2018-11-22] MEDS: levoFLOXacin 500 MG Tablet PO SCH (15:27)
[2018-11-22] MEDS ORDERED: Sod Chloride 0.9% Inj 1,000 ML IV.SIG ONE (18:30)
[2018-11-22] MEDS: Metoprolol Tartrate 50 MG Tablet PO SCH (20:44)
[2018-11-22] MEDS ORDERED: Metoprolol Tartrate 100 MG Tablet PO SCH (21:00)
--- NOTE | 2018-11-23 08:53 | ECG ---
Date Performed: 11/22/2018 Time Performed: 17:22:08 PTAGE: 73 years EKG: Marked baseline artifact Atrial fibrillation with PVC(s). Indeterminate axis Right bundle b ranch block Possible septal infarct - age undetermined Possible inferior infarct - age undetermined N onspecific T-wave changes Abnormal ECG NO PREVIOUS TRACING DOCTOR: Lopez Braun Interpretating Date/Time 11/23/2018 08:53:11
--- NOTE | 2018-11-23 09:46 | P.PNGI ---
Subjective Interval history: alert NAD VSS tolerating po well less abdominal pain only occational and mild Physical Exam Vital signs: Vital Signs 11/22/18 11:05 11/22/18 12:00 11/22/18 16:00 Temperature 97.3 F L 97.9 F Pulse Rate 114 H 108 H 90 Respiratory Rate 16 18 Blood Pressure 112/68 112/71 Pulse Oximetry 97 97 11/22/18 16:13 11/22/18 20:00 11/23/18 00:00 Temperature 98.1 F 98.1 F Pulse Rate 106 H 91 H 85 Respiratory Rate 17 15 Blood Pressure 94/73 L 92/77 L Pulse Oximetry 95 93 L 11/23/18 04:00 11/23/18 08:32 Temperature 98.1 F 97.7 F Pulse Rate 95 H 98 H Respiratory Rate 18 18 Blood Pressure 100/69 98/57 L Pulse Oximetry 95 95 Intake & Output 11/22/18 11/23/18 11/23/18 18:59 06:59 18:59 Intake Total 920 / 920 1100 / 1100 Balance 920 / 920 1100 / 1100 Weight 58.7 kg Intake: IV 200 / 200 1100 / 1100 NS Inj 1,000 ML @ 999 mls/hr IV 1000 / 1000 .SIG BOLUS ONE Rx#:[id number] Flagyl 500 MG Inj 100 ML @ 100 200 / 200 100 / 100 mls/hr IV.SIG Q8H MCKAY Rx#: [id number] Oral 720 / 720 Other: # Voids 3 3 Date of Last Bowel Movement 11/22/18 # Bowel Movements 1 - Routine Respiratory Exam Comments: clear to A/p - Routine Cardiovascular Exam Present: RRR, S1, S2 - Routine Abdominal Exam Present: soft, normoactive bowel sounds Comments: nontender no rebound or gaurding Results - Labs CBC & Chem 7: 11/22/18 09:39 11/22/18 09:39 Laboratory Results - last 24 hr 11/22/18 11/22/18 11/22/18 09:39 09:39 18:30 WBC 8.3 RBC 4.86 Hgb 15.6 H Hct 47.1 H MCV 97.0 MCH 32.2 MCHC 33.2 RDW 17.1 Plt Count 158 MPV 8.9 Sodium 142 Potassium 3.7 Chloride 107 Carbon Dioxide 25.0 Anion Gap 10 BUN 28 H Creatinine 1.43 H Estimated GFR 44 L Random Glucose 101 Calcium 9.1 Magnesium Troponin I 0.02 11/22/18 18:30 WBC RBC Hgb Hct MCV MCH MCHC RDW Plt Count MPV Sodium Potassium Chloride Carbon Dioxide Anion Gap BUN Creatinine Estimated GFR Random Glucose Calcium Magnesium 1.4 L Troponin I Assessment and Plan (1) Abdominal pain of unknown cause Status: Acute Code(s): R10.9 - Unspecified abdominal pain (2) Abdominal pain, acute Status: Acute Code(s): R10.9 - Unspecified abdominal pain - Plan pt appears stable hopefully d/c in next 24 hrs continue present therapy pt to f/u w Dr Bella disucuseed w pt
[2018-11-23] MEDS: levoFLOXacin 500 MG Tablet PO SCH (10:06)
[2018-11-23] MEDS: Metoprolol Tartrate 50 MG Tablet PO SCH (10:06)
[2018-11-23] MEDS: Potassium Chloride 10 MEQ ER Capsule PO SCH (10:07)
[2018-11-23] MEDS: Furosemide 20 MG Tablet PO SCH (10:07)
[2018-11-23 10:55] LABS: Baso # (Auto) 0.1 th/mm3 (0.0-0.2); Baso % (Auto) 2.3 % (0.0-2.0); Eos % (Auto) 0.9 % (0.0-4.0); Hematocrit 44.2 % (35.0-46.0); Hemoglobin 15.1 gm/dL (11.6-15.3); Lymph # (Auto) 0.7 th/mm3 (1.0-4.8); Lymph % (Auto) 12.5 % (9.0-44.0); Mean Corpuscular HGB Conc 34.1 % (32.0-36.0); Mean Corpuscular Hemoglobin 32.8 pg (27.0-34.0); Mean Corpuscular Volume 96.1 fL (80.0-100.0); Mean Platelet Volume 8.6 fL (7.0-11.0); Mono # (Auto) 0.6 th/mm3 (0.0-0.9); Mono % (Auto) 10.4 % (0.0-8.0); Neut % (Auto) 73.9 % (16.0-70.0); Platelet Count 141 th/mm3 (150-450); Red Cell Distribution Width 16.5 % (11.6-17.2); White Blood Count 5.4 th/mm3 (4.0-11.0)
[2018-11-23 11:16] LABS: Calcium 8.3 mg/dL (8.5-10.1); Carbon Dioxide 22.5 meq/L (21.0-32.0); Potassium 3.5 meq/L (3.5-5.1)
[2018-11-23] MEDS ORDERED: Digoxin 250 MCG Tablet PO ONE (11:57)
[2018-11-23] MEDS ORDERED: Mag Sulf 1 gm/100 ml Premix 100 ML IV.SIG ONE (11:57)
--- NOTE | 2018-11-23 12:05 | P.PNIM ---
Subjective Interval history: Reports feeling dizzy and having poor appetite. Only eating 10% of her soft diet. Reports had some chest pain yesterday which has now resolved. No active shortness of breath. Still with rectal bleeding, no diarrhea. Physical Exam Vital signs: Vital Signs 11/22/18 16:00 11/22/18 16:13 11/22/18 20:00 Temperature 97.9 F 98.1 F Pulse Rate 90 106 H 91 H Respiratory Rate 18 17 Blood Pressure 112/71 94/73 L Pulse Oximetry 97 95 11/23/18 00:00 11/23/18 04:00 11/23/18 08:00 Temperature 98.1 F 98.1 F Pulse Rate 85 95 H 112 H Respiratory Rate 15 18 Blood Pressure 92/77 L 100/69 Pulse Oximetry 93 L 95 11/23/18 08:32 11/23/18 11:05 Temperature 97.7 F Pulse Rate 98 H 98 H Respiratory Rate 18 Blood Pressure 98/57 L Pulse Oximetry 95 Intake & Output 11/22/18 11/23/18 11/23/18 18:59 06:59 18:59 Intake Total 920 / 920 1100 / 1100 100 / 100 Balance 920 / 920 1100 / 1100 100 / 100 Weight 58.7 kg Intake: IV 200 / 200 1100 / 1100 100 / 100 NS Inj 1,000 ML @ 999 mls/hr IV 1000 / 1000 .SIG BOLUS ONE Rx#:[id number] Flagyl 500 MG Inj 100 ML @ 100 200 / 200 100 / 100 100 / 100 mls/hr IV.SIG Q8H MCKAY Rx#: [id number] Oral 720 / 720 Other: # Voids 3 3 Date of Last Bowel Movement 11/22/18 # Bowel Movements 1 Narrative: VS: afebrile GENERAL: Elderly white female, well-nourished for her age, no acute distress CARDIOVASCULAR: Irregular tachycardic and rhythm RESPIRATORY: No accessory muscle use. Clear to auscultation. Breath sounds equal bilaterally. GASTROINTESTINAL: Abdomen soft, mild bilateral upper quadrant diffuse tenderness , no rebound guarding nondistended Extremities: No clubbing, cyanosis, or edema. No obvious deformities. MUSCULOSKELETAL: adequate muscle bulk and tone for age and habitus NEUROLOGICAL: Awake and alert to person place time Results Labs CBC & Chem 7: 11/23/18 10:13 02/17/19 10:13 Assessment and Plan (1) Abdominal pain of unknown cause: Code(s): R10.9 - Unspecified abdominal pain Status: Acute (2) Abdominal pain, acute: Code(s): R10.9 - Unspecified abdominal pain Status: Acute Plan 73 y/o BF admitted for abdominal pain and possible GI bleed for [address] consistent with acute colitis. The patient had a colonoscopy a few days ago which revealed diverticulosis. Acute colitis: Status recent colonoscopy with revealed diverticulosis; rule out ischemic colitis - Continue antibiotics with Levaquin and Flagyl. Continue supportive care and pain control. - Appreciate GI following Patient with poor diet and will add supplement to regimen. Ascites: - Etiology on known. -Not enough fluid for safe paracentesis procedure for diagnostic analysis GI bleeding: - Postprocedure -Patient states that she is still having bloody stools, will continue to monitor hemoglobin. Hemoglobin today remained stable. Afib with RVR: -s/p previous Cardizem -Decrease home metoprolol to 25 twice daily as patient had hypotension after given 100 mg of metoprolol yesterday Give a dose of digoxin. -hold home eliquis in light of bleed for now. Plan to resume in the next couple of days. Pleural effusion on abdominal CT: - Respiratory status is stable at this time. She is on room air. - We will hold off on thoracentesis. Follow-up fluid studies from paracentesis. Continue with home furosemide Hypotension with poor p.o. intakegentle hydration normal saline at 30 and will monitor closely fluid status due to history of chronic systolic congestive heart failure chronic sCHF CAD -home kcl, statin, and furosemide hx of DVT with hx of GI bleed -IVC filter placement SCDs given bleeding Anticoagulation on hold due to GI bleed Progress Note: Quality VTE Deep Vein Thrombosis/Pulmonary Embolism Present on Admission: No
[2018-11-23] MEDS: Sodium Chlor 0.9% Inj 500 ML IV.CONT SCH (16:03)
[2018-11-23] MEDS: Magnesium Oxide 400 MG Tablet PO SCH ×2 (16:03→20:03)
[2018-11-23] MEDS: Metoprolol Tartrate 25 MG Tablet PO SCH (20:03)
[2018-11-23] MEDS: Acetaminophen 325 MG Tablet PO PRN (21:48)
[2018-11-24] MEDS: Sodium Chlor 0.9% Inj 500 ML IV.CONT SCH (06:28)
[2018-11-24 07:59] LABS: Hematocrit 45.3 % (35.0-46.0); Hemoglobin 14.9 gm/dL (11.6-15.3); Mean Corpuscular HGB Conc 32.9 % (32.0-36.0); Mean Corpuscular Volume 94.3 fL (80.0-100.0); Mean Platelet Volume 8.9 fL (7.0-11.0); Platelet Count 163 th/mm3 (150-450); Red Blood Count 4.81 mil/mm3 (4.00-5.30); Red Cell Distribution Width 16.9 % (11.6-17.2); White Blood Count 11.2 th/mm3 (4.0-11.0)
[2018-11-24 08:30] LABS: Calcium 8.5 mg/dL (8.5-10.1); Carbon Dioxide 19.3 meq/L (21.0-32.0); Magnesium 1.8 mg/dL (1.5-2.5); Potassium 3.9 meq/L (3.5-5.1)
[2018-11-24] MEDS: levoFLOXacin 500 MG Tablet PO SCH (09:00)
[2018-11-24] MEDS: Furosemide 20 MG Tablet PO SCH (09:00)
[2018-11-24] MEDS: Magnesium Oxide 400 MG Tablet PO SCH ×2 (09:00→21:36)
[2018-11-24] MEDS: Metoprolol Tartrate 25 MG Tablet PO SCH ×2 (09:01→21:36)
[2018-11-24] MEDS: Potassium Chloride 10 MEQ ER Capsule PO SCH (09:01)
--- NOTE | 2018-11-24 12:43 | P.PNIM ---
Subjective Interval history: No further dizziness. Trying to get stronger. Reports still some specks of blood in her stool but has less. Wants a rolling walker for home. Does live alone. Physical Exam Vital signs: Vital Signs 11/23/18 12:59 11/23/18 16:50 11/23/18 20:00 Temperature 97.9 F 97.7 F 97.3 F L Pulse Rate 84 81 84 Respiratory Rate 18 16 17 Blood Pressure 122/70 100/64 107/70 Pulse Oximetry 98 98 96 11/23/18 23:30 11/24/18 00:00 11/24/18 03:40 Temperature 97.3 F L 97.3 F L Pulse Rate 83 79 81 Respiratory Rate 17 17 Blood Pressure 125/69 107/77 Pulse Oximetry 96 96 11/24/18 04:00 11/24/18 08:00 11/24/18 11:00 Temperature 97.2 F L Pulse Rate 93 H 87 98 H Respiratory Rate 16 Blood Pressure 117/74 Pulse Oximetry 94 L Intake & Output 11/23/18 11/24/18 11/24/18 18:59 06:59 18:59 Intake Total 300 / 300 580 / 580 100 / 100 Balance 300 / 300 580 / 580 100 / 100 Weight 60.5 kg Intake: IV 300 / 300 100 / 100 100 / 100 Magnesium Sulfate 1 gm/D5W 100 100 / 100 ml Premix 100 ML @ 100 mls/hr IV.SIG ONCE ONE Rx#:[id number] Flagyl 500 MG Inj 100 ML @ 100 200 / 200 100 / 100 100 / 100 mls/hr IV.SIG Q8H MCKAY Rx#: [id number] Oral 480 / 480 Other: # Voids 2 4 Date of Last Bowel Movement 11/23/18 # Bowel Movements 4 Narrative: VS: afebrile GENERAL: Elderly white female, well-nourished for her age, no acute distress CARDIOVASCULAR: Irregular rate and rhythm RESPIRATORY: No accessory muscle use. Clear to auscultation. Breath sounds equal bilaterally. GASTROINTESTINAL: Abdomen soft, mild bilateral upper quadrant diffuse tenderness , no rebound guarding nondistended Extremities: No clubbing, cyanosis, or edema. No obvious deformities. MUSCULOSKELETAL: adequate muscle bulk and tone for age and habitus NEUROLOGICAL: Awake and alert to person place time Results Labs CBC & Chem 7: 11/24/18 07:05 11/24/18 07:05 Assessment and Plan (1) Abdominal pain of unknown cause: Code(s): R10.9 - Unspecified abdominal pain Status: Acute (2) Abdominal pain, acute: Code(s): R10.9 - Unspecified abdominal pain Status: Acute Plan 73 y/o BF admitted for abdominal pain and possible GI bleed for [address] consistent with acute colitis. The patient had a colonoscopy a few days ago which revealed diverticulosis. Acute colitis: Status recent colonoscopy with revealed diverticulosis; rule out ischemic colitis - Continue antibiotics with Levaquin and Flagyl. Continue supportive care and pain control. - Appreciate GI following Patient with improved p.o. intake, supplement added. Ascites: - Etiology on known. -Not enough fluid for safe paracentesis procedure for diagnostic analysis GI bleeding: - Postprocedure -Patient states that she is still having bloody stools, will continue to monitor hemoglobin. Hemoglobin today remained stable. Afib with RVR: Currently rate controlled. -s/p previous Cardizem -Decrease home metoprolol to 25 twice daily as patient had hypotension after given 100 mg of metoprolol 11/22 Give a dose of digoxin. -hold home eliquis in light of bleed for now. Plan to resume in the next couple of days. Pleural effusion on abdominal CT: - Respiratory status is stable at this time. She is on room air. - We will hold off on thoracentesis. Follow-up fluid studies from paracentesis. Continue with home furosemide Hypotension with poor p.o. intakeblood pressure now better controlled after gentle hydration normal saline at 30 and will monitor closely fluid status due to history of chronic systolic congestive heart failure; will stop fluids later today to determine if blood pressure remains stable. chronic sCHF CAD -home kcl, statin, and furosemide hx of DVT with hx of GI bleed -IVC filter placement SCDs given bleeding Anticoagulation on hold due to GI bleed Possible discharge to home with home health care in the morning if blood pressure remains stable off of IV fluids. Progress Note: Quality VTE Deep Vein Thrombosis/Pulmonary Embolism Present on Admission: No
--- NOTE | 2018-11-24 12:47 | P.DCO ---
Diagnosis (1) Colitis, acute: Status: Acute (2) Atrial fibrillation: Status: Chronic (3) Chronic systolic CHF (congestive heart failure): Status: Chronic Home Health Nursing Order: CHF education and Nursing assessment with vital signs Case Management Consult Case Management Consult-Home Health: Yes I have seen patient Biju Knutson on 11/24/18. My clinical findings support the need for the requested home health care services because: Limited mobility due to disease progression I certify that my clinical findings support that this patient is homebound because: Poor cardiac reserve
[2018-11-24] MEDS: Digoxin 250 MCG Tablet PO SCH (13:54)
[2018-11-25] MEDS: Digoxin 250 MCG Tablet PO SCH (08:07)
[2018-11-25] MEDS: levoFLOXacin 500 MG Tablet PO SCH (08:07)
[2018-11-25] MEDS: Metoprolol Tartrate 25 MG Tablet PO SCH (08:07)
[2018-11-25] MEDS: Furosemide 20 MG Tablet PO SCH (08:07)
[2018-11-25] MEDS: Potassium Chloride 10 MEQ ER Capsule PO SCH (08:07)
[2018-11-25] MEDS: Magnesium Oxide 400 MG Tablet PO SCH (08:07)
[2018-11-25 08:40] VITALS: RESP 18
[2018-11-25] MEDS ORDERED: metroNIDAZOLE 500 MG Tablet PO ONE (10:33)
[2018-11-25 11:22] LABS: Hematocrit 43.7 % (35.0-46.0); Hemoglobin 15.1 gm/dL (11.6-15.3)
[2018-11-25 13:19] VITALS: BP 122/71; PULSE 79; TEMP 98.1; O2SAT 95
--- NOTE | 2018-11-25 13:41 | P.DS ---
DS: Providers Date of admission: 11/20/18 17:18 Primary care physician: Neri Hernández MD Consults: 11/20/18 17:26 Consult to Gastroenterology Routine Consulting Provider: Luis Fernando Koch Preferred Tube Skiver:: Jessee Bella Patient known to:: Jessee Bella Reason for Consultation: GI bleed Notified:: Service Spoke with:: Edgar Date Notified:: 11/20/18 Time Notified:: 17:36 Ordering Provider: ANSHUL 11/24/18 08:56 HUB Only Consult Order Routine Consulting Provider: [facility],Insurance Anticipated date of discharge: 11/25/18 Brief History from admission: 73-year-old black female being admitted for GI bleed and abdominal pain. Patient was in her usual state of health until 2 days ago she had a colonoscopy done, the results of which she does not know. Says that since going home after the procedure she has had bloody bowel movements on a daily basis with abdominal pain. Says that the pain partially responded some Tylenol. Denies taking any NSAIDs. Otherwise pain can get worse with different positioning. Denies any nausea vomiting. Has noted blood in the stool as well as blood on wiping. Denies any dysuria. Denies any fevers or chills. Says she did not restart any of her home medications after the procedure because she was worried about her condition. She decided to come to the ED today, dropped off by a friend. In the ED she had stable vital signs except for highly elevated blood pressure at one point and a pulse of 119. CT scan was done which showed colitis in the descending colon as well as the splenic flexure. Hemoglobin is about 16, creatinine is slightly elevated above 1. Patient was given cardizem x 1 , as well as levaquin and flagyl. DS: Diagnosis Discharge Diagnosis (1) Colitis, acute: Status: Acute Diagnosis: Principal (2) Atrial fibrillation: Status: Chronic Diagnosis: Secondary (3) Chronic systolic CHF (congestive heart failure): Status: Chronic Diagnosis: Secondary (4) Ascites: Status: Chronic Diagnosis: Secondary (5) Diverticulosis: Status: Chronic Diagnosis: Secondary DS: Summary 73-year-old female admitted for acute abdominal pain with GI bleed found to have acute colitis. Patient had a previous recent colonoscopy with Dr. Bella which revealed diverticulosis. GI service was consulted who recommended continue antibiotics with Levaquin and Flagyl and continue supportive care and advance diet as tolerated. Her Eliquis, chronic anticoagulation was on hold which she takes for her history of atrial fibrillation. She reports bloody stools during the hospitalization however her hemoglobin continues to be stable throughout the hospitalization. She developed atrial fibrillation with rapid ventricular rate and digoxin was started during the hospitalization as she had hypotension and cannot tolerate her home metoprolol dose 100 mg p.o. twice daily. Her metoprolol was decreased to 25 mg p.o. twice daily, gentle hydration was given with close monitoring of her chronic systolic congestive heart failure. She ambulated with physical therapy and recommendations were to transition home with home health care along with arranging for a rolling walker. She will be transitioned home with follow-up with her primary care physician and GI physician Dr. Bella, repeat CBC to be done in 1 week to determine when she can restart her chronic anticoagulation. Time Spent with Patient Total time spent providing and/or coordinating discharge services: Less than 30 minutes Quality: VTE Deep Vein Thrombosis/Pulmonary Embolism Present on Admission: No Exam Narrative Exam Narrative: GENERAL: This is a well-nourished, well-developed patient, in no apparent distress. CARDIOVASCULAR: Irregular rate and rhythm RESPIRATORY: Clear to auscultation. Breath sounds equal bilaterally. No wheezes , rales, or rhonchi. GASTROINTESTINAL: Abdomen soft, non-tender, nondistended. Normal active bowel sounds MUSCULOSKELETAL: Extremities without clubbing, cyanosis, or edema. NEURO: Alert & Oriented x4 to person, place, time, situation. Moves all ext x4 Results Labs on day of discharge: Labs from last 24 hours 11/25/18 10:54 Hgb 15.1 Hct 43.7 Impressions ITS Impressions Abdomen/Pelvis CT 11/20/18 15:09 CONCLUSION: 1. Acute inflammatory process involving the descending colon extending from the splenic flexure to the distal sigmoid. 2. Moderate amount of ascites. 3. Bilateral pleural effusions. The right is larger than left. 4. No free air. Abdomen Ultrasound 11/21/18 00:00 CONCLUSION: Small amount of peritoneal ascites. Insufficient volume for percutaneous drainage. Discharge Plan Discharge Disposition Patient Disposition: W/Home Health Service Discharge Condition Condition: Stable Discharge Order Discharge Orders: Discharge Order (Routine); Ordered 11/25/18 Ordered By: Gee Baeza Discharge Details Discharge Comment: Discharge if hemoglobin is stable Physicians Team ED Provider: Emanuel Massey Primary Care Provider: eNri Hernández Attending Provider: Gee Baeza Other Providers: Luis Fernando Koch ; [facility],Insurance Rxs /Orders / Referrals /Forms Prescriptions: New levofloxacin 500 mg Tablet 500 mg PO DAILY Qty: 3 RF: 0 metronidazole [Flagyl] 500 mg tablet 500 mg PO Q8H Qty: 9 RF: 0 metoprolol tartrate 25 mg Tablet 25 mg PO BID Qty: 60 RF: 0 Continue potassium chloride 10 mEq Capsule, Extended Release 10 meq PO DAILY RF: 0 simvastatin 20 mg Tablet 20 mg PO QPM RF: 0 furosemide 20 mg Tablet 20 mg PO DAILY RF: 0 albuterol sulfate [ProAir HFA] 90 mcg/actuation Hfa Aerosol Inhaler 2 puff INHALATION Q4-6H PRN (Reason: Shortness Of Breath) RF: 0 Discontinued metoprolol tartrate 100 mg Tablet 100 mg PO BID RF: 0 apixaban [Eliquis] 2.5 mg Tablet 2.5 mg PO BID RF: 0 Ambulatory Orders / Order Sets / DME: Complete Blood Count with Diff (Routine) Timeframe: 1 Week Location: Determined by Patient Ordered By: Gee Baeza Walker With Front Wheels (1 each) (Routine) Location: Determined by Patient Ordered By: Gee Baeza Referrals: Neri Hernández MD [Primary Care Provider] - See Instructions (Please call the physician's office to MAKE YOUR appointment to be seen within 1 week.) Jessee Bella MD [Physician] - See Instructions (Please call the physician's office to MAKE YOUR appointment to be seen within 2 to 4 weeks.) Discharge Instructions Patient Printed Instructions: Metoprolol (By mouth), Metronidazole (By mouth), Levofloxacin (By mouth), Colitis (ED) Post Discharge Care Plan Care Plan Goals: Your Health Problems: colitis Goals to Promote Your Health: * To prevent worsening of your condition * To maintain your health at the optimal level Directions to Meet Your Goals: * Take your medications as prescribed * Follow your dietary instruction * Follow activity as directed * Keep your appointments as scheduled * Take your immunizations and boosters as scheduled * If your symptoms worsen call your PCP * If no PCP go to Urgent Care or Emergency Room Smoking is dangerous to your health. Avoid second hand smoke. You may reach the 24-hour crisis hotline for domestic abuse at . Status ED Status: Left Department
[2018-11-25] MEDS ORDERED: metroNIDAZOLE 500 MG Tablet PO SCH (14:00)
== END 2018-11-25 13:15 | disposition home health service (06) | DRG 392 ==
LOC: NEPE 14:38 → NEDA 17:18 → N04 19:34
PROVIDERS: ADMIT Family Medicine; ATTEND Family Medicine
DX: I25.10 Atherosclerotic heart disease of native coronary artery without angina pectoris; E78.5 Hyperlipidemia, unspecified; Z95.1 Presence of aortocoronary bypass graft; I50.22 Chronic systolic (congestive) heart failure; Z79.02 Long term (current) use of antithrombotics/antiplatelets; Z68.20 Body mass index [BMI] 20.0-20.9, adult; R00.0 Tachycardia, unspecified; K62.5 Hemorrhage of anus and rectum; K57.30 Diverticulosis of large intestine without perforation or abscess without bleeding; K52.9 Noninfective gastroenteritis and colitis, unspecified; R63.4 Abnormal weight loss; Z87.891 Personal history of nicotine dependence; I48.91 Unspecified atrial fibrillation; I13.0 Hypertensive heart and chronic kidney disease with heart failure and stage 1 through stage 4 chronic kidney disease, or unspecified chronic kidney disease; R18.8 Other ascites; Z98.890 Other specified postprocedural states; N18.9 Chronic kidney disease, unspecified; Z86.718 Personal history of other venous thrombosis and embolism
CPT/HCPCS: 74176; 76705; 80048; 80053; 83690; 83735; 84484; 85014; 85018; 85025; 85027; 85610; 85730; 86850; 86900; 86901; 90765; 90775; 93005; 96365; 96375; 97162; 99285; C9113; J1956; J2270; J2405; J3475; J7030; J7040